=== PATIENT | female | born 1945 | race Caucasian/White ===

== ENCOUNTER → 2019-03-02 15:59 | Outpatient (CLI) | payer MEDICARE, MEDICAID, OTHER, SELFPAY ==
[2019-03-02 16:34] LABS: Basophils # 0.1 K/mm3 (0-0.2); Basophils % 0.6 % (0.1-2.0); Eosinophils # 0.1 K/mm3 (0.0-0.4); Eosinophils % 1.6 % (0.1-12.0); Hematocrit 40.4 % (37.0-47.0); Hemoglobin 13.2 g/dL (12.2-16.2); Lymphocytes # 2.8 K/mm3 (0.7-4.5); Lymphocytes % 31.6 % (10-50); Mean Corpuscular HGB Conc 32.6 g/dL (31.8-35.4); Mean Corpuscular Hemoglobin 29.7 pg (27.0-31.2); Mean Corpuscular Volume 91.1 fl (81-99); Mean Platelet Volume 6.9 fl (7.4-10.4); Monocytes # 0.6 K/mm3 (0.1-1.0); Monocytes % 6.9 % (1.7-9.3); Neutrophils # 5.3 K/mm3 (1.8-7.8); Neutrophils % 59.4 % (37.0-80.0); Platelet Count 383 K/mm3 (142-424); Red Blood Count 4.44 M/mm3 (4.20-5.40); Red Cell Distribution Width 12.5 % (11.5-17.5); White Blood Count 8.9 K/mm3 (4.8-10.8)
[2019-03-02 17:28] LABS: Hemoglobin A1C 6.1 % (0.0-7.0)
[2019-03-02 18:48] LABS: Alanine Aminotransferase 41 U/L (12-78); Albumin Level 3.8 gm/dL (3.4-5.0); Albumin/Globulin Ratio 1.1 (1.1-1.8); Alkaline Phosphatase 86 U/L (46-116); Anion Gap 11.6 mEq/L (5-15); Aspartate Amino Transferase 29 U/L (15-37); Bilirubin,Total 0.5 mg/dL (0.2-1.0); Blood Urea Nitrogen 19 mg/dL (7-18); Calcium 9.7 mg/dL (8.5-10.1); Carbon Dioxide 29 mmol/L (21.0-32.0); Chloride 101 mmol/L (98-107); Chol/HDL Ratio 3.5 (1-3.5); Cholesterol 176 mg/dL (140-200); Creatinine,Serum 0.57 mg/dL (0.55-1.02); Estimated Glomerular Filt Rate 104 ml/min (>60); GFR (African American) 126 ML/MIN (>60); Globulin 3.4 gm/dl (1.3-3.2); Glucose 90 mg/dL (74-106); HDL Cholesterol 50 mg/dL (29-89); LDL Cholesterol 109 mg/dL (0-130); Potassium 4.6 mmoL/L (3.5-5.1); Sodium 137 mmol/L (136-145); Thyroid Stimulating Hormone 1.51 uIU/ml (0.358-3.740); Total Protein,Serum 7.2 gm/dL (6.4-8.2); Triglycerides 86 mg/dL (30-200); VLDL Cholesterol 17 mg/dL (0-40)
[2019-03-05 09:42] LABS: Folate 18.1 ng/mL (>3.0); Vitamin B12 686 pg/mL (232-1245)
== END ==
PROVIDERS: Visit Provider Family Medicine
DX: R60.0 Localized edema (principal); R07.89 Other chest pain; I35.8 Other nonrheumatic aortic valve disorders; R13.10 Dysphagia, unspecified; Z79.899 Other long term (current) drug therapy
CPT/HCPCS: 36415; 80053; 80061; 82607; 82746; 83036; 84443; 85025

== ENCOUNTER → 2019-03-05 09:11 | Outpatient (CLI) | payer MEDICARE, OTHER, SELFPAY ==
--- NOTE | 2019-03-05 09:22 | FL_ITS ---
PROCEDURE: FL BARIUM SWALLOW CLINICAL INDICATION: ESOP;HAGEAL DYSPHAGIA COMPARISON: No exams were available for comparison TECHNIQUE: In the upright position the patient was observed to swallow barium in both the AP and lateral view. The cervical esophagus was examined under fluoroscopy with images obtained. The patient was then placed prone in the right anterior oblique position and was observed to swallow barium with Valsalva technique . FLUOROSCOPY TIME: 2 minutes 36 seconds FINDINGS: The swallowing function was normal. There is minimal intermittent cricopharyngeal dysfunction lower cervical soft tissues. 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 There were moderate tertiary contractions of the lower 2/3 of the esophagus. There is a small sliding hiatal hernia but there was no significant GE reflux seen with the patient in the supine position. IMPRESSION: The combination of mild cricopharyngeal dysfunction and multilevel degenerate changes of the cervical spine could be a cause for symptoms of dysphagia particularly the solid foods. There there are findings of mild to moderate esophageal dyskinesia as described Dictated by: Dr. Wilman Mullins MD 03/05/2019 10:28 Signed by: <Electronically signed by Dr. Wilman Mullins MD in [place]> 03/05/2019 10:28
== END ==
PROVIDERS: PCP Family Medicine; Visit Provider Family Medicine
DX: I35.8 Other nonrheumatic aortic valve disorders (principal); R13.10 Dysphagia, unspecified; R60.0 Localized edema; R07.89 Other chest pain
CPT/HCPCS: 74220; 93306

== ENCOUNTER → 2019-06-11 09:20 | Outpatient (CLI) | payer MEDICARE, OTHER, SELFPAY ==
--- NOTE | 2019-06-11 09:26 | CA_ITS ---
APPROVED REPORT Dietitian Helper: Verenice Ricci RVT Laterality: Bilateral Study Quality: Good Indications: Dizziness and Vertigo Risk Factors Hypertension: TIA/CVA History Hyperlipidemia Doppler Spectral Velocity Analysis ECA (R) 137.80/12.00 cm/s ECA (L) 127.20/14.20 cm/s dICA (R) 129.40/31.40 cm/s dICA (L) 79.30/18.00 cm/s Nina (R) 107.70/28.40 cm/s Nina (L) 59.10/15.70 cm/s pICA (R) 81.50/20.50 cm/s pICA (L) 83.10/21.70 cm/s dCCA (R) 70.00/14.80 cm/s dCCA (L) 59.90/10.50 cm/s pCCA (R) 95.70/14.80 cm/s pCCA (L) 76.30/12.00 cm/s Vert (R) 51.50/13.70 cm/s Vert (L) 59.10/15.70 cm/s ICA/CCA 1.85 ICA/CCA 1.39 Conclusion Study suggests normal bilateral internal cartoid arteries. No evidence of stenosis visualized. Electronically signed by : Mars Wilkins MD 06/16/2019 18:41:18
== END ==
PROVIDERS: PCP Family Medicine; Visit Provider Family Medicine
DX: R42 Dizziness and giddiness (principal)
CPT/HCPCS: 93880

== ENCOUNTER → 2020-11-17 09:43 | Outpatient (CLI) | payer MEDICARE, OTHER, SELFPAY ==
--- NOTE | 2020-11-17 09:49 | US_ITS ---
PROCEDURE: US THYROID CLINICAL INDICATION: ESOPHAGEAL DYSPHAGIA COMPARISON: No exams were available for comparison FINDINGS: Right lobe: 1.4cm x 3.7cm x 1.2cm. 9 x 5 mm slightly hypoechoic nodule in the upper pole. 2 mm cyst lower pole. There is mild diffuse heterogeneous echogenicity. Left lobe: 1.3cm x 3.8cm x 1.2cm. 6 mm slightly hypoechoic nodule pole. Subtle 3 mm hypoechoic nodule lower pole Isthmus: Thickened at 7 mm Additional findings: IMPRESSION: Small bilateral nodules TR level 3. Recommend twelve month follow-up. Dictated by: Mars Wilkins MD 11/18/2020 08:38 Mars Wilkins MD in [place] 11/18/2020 08:38
== END ==
PROVIDERS: PCP Family Medicine; Visit Provider Family Medicine
DX: R13.10 Dysphagia, unspecified (principal)
CPT/HCPCS: 76536

== ENCOUNTER 2021-04-06 15:16 | Emergency (ER) | payer MEDICARE, OTHER, SELFPAY ==
--- NOTE | 2021-04-06 15:24 | HMH.EDGENADL ---
ED Disposition Clinical Impression: Head injury, Facial contusion, Nasal fracture Disposition: Home, Self-Care Condition on Discharge: Good Additional Instructions: Follow head injury precautions. Continue home medications. Return to the emergency for any new symptoms. Call ENT for follow-up regarding nasal fracture. Take Tylenol as needed for pain. Return to the emergency room for any new symptoms. Referrals: Alvaro Reina MD [Primary Care Provider] - - Critical Care Critical Care Time: No Attestation: On 04/06/21, the high probability of a clinically significant, sudden or life threatening deterioration of the following system(s) required my full and direct attention, intervention and personal management. The time I documented below is in addition to time spent performing reported procedures but includes the following listed in this critical care notation. Medical Decision Making - Medical Records MR Comment: Patient has only 1 cm superficial laceration on the frontal area. Decided to use Dermabond. She was sent to the x-ray for CT scan of the brain and facial bones. There was no signs of concussions. No change in mental status. No focal neurological deficit. CT scan of the head was negative. CT of the facial bones shows nasal fracture she has to follow-up with ENT. Regarding her left knee she has chronic deformity for the past 16 years and it was addressed several times by the orthopedic and advised there is no surgery indicate. - Rajat Inquiry Pt receiving controlled substance: No Rajat was queried for this patient: No Vital Signs: 04/06/21 15:37 Temperature 98.3 F Temperature Source Oral Pulse Rate [Left] 109 H Respiratory Rate 16 Blood Pressure [Right Arm] 169/91 H Blood Pressure Mean [Right Arm] 117 Blood Pressure Source [Right Arm] Automatic Cuff Blood Pressure Position [Right Arm] Supine 02 Sat by Pulse Oximetry 96 Oxygen Delivery Method Room Air General Adult HPI - General Stated complaint: AO [id number] facial Time Seen by Provider: 04/06/21 15:22 Description of Symptoms (Recalled from ER Triage Doc. by RN): Patient is 76-year-old female who tripped and fell and caused soft tissue swelling on the frontal area of the face and around her right eye. She denies any loss of consciousness. No nausea or vomiting. No change in mental status. She denies any headache. She denies any chest pain. She denies any shortness of breath. She walked to the emergency room. Patient has chronic problem involving her left knee and her gait is not stable for the past 16 years due to deformity of the left knee. No other injuries. Denies any other complaints. There was 1 cm superficial laceration on the frontal area which involved the skin only. - Related Data Home Medications Medication Instructions Recorded Confirmed aspirin 81 mg tablet,delayed 81 mg PO DAILY 08/13/19 09/14/19 release diphenhydramine HCl 25 mg capsule 25 mg PO QHS 08/13/19 09/14/19 meclizine 12.5 mg tablet 12.5 mg PO BID 08/13/19 09/14/19 multivit with min-folic 1 tab PO DAILY 08/13/19 09/14/19 acid-lutein 400 mcg-250 mcg chewable tablet omeprazole 40 mg capsule,delayed 40 mg PO DAILY 08/13/19 09/14/19 release triamterene 37.5 1 cap PO BID 08/13/19 09/14/19 mg-hydrochlorothiazide 25 mg capsule Previous Rx's Medication Instructions Recorded sodium,potassium,mag sulfates 17.5 See Rx Instructions PO .COMPLEX 09/14/19 gram-3.13 gram-1.6 gram oral soln #354 ml Allergies Allergy/AdvReac Type Severity Reaction Status Date / Time Penicillins Allergy Verified 09/14/19 11:28 [facility] History - Hepatitis A Screen Attestation statement:: This patient has been screened for Hepatitis A risk factors. Medical History: Reports:: Gastroesophageal Reflux Disease(GERD), Hypertension Denies:: Cancer, Diabetes Mellitus Type 1, Diabetes Mellitus Type 2, Internal Pacemaker, MRSA, Seizures Oth
[2021-04-06 15:37] VITALS: BP 169/91; PULSE 109; RESP 16; TEMP 36.8; O2SAT 96; BMI 36.7
--- NOTE | 2021-04-06 15:49 | CT_ITS ---
PROCEDURE INFORMATION: Exam: CT Head Without Contrast Exam date and time: 04/06/2021 3:49 PM Age: 76 years old Clinical indication: Injury or trauma; Fall; Concussion/head injury; Consciousness not specified TECHNIQUE: Imaging protocol: Computed tomography of the head without contrast. Radiation optimization: All CT scans at this facility use at least one of these dose optimization techniques: automated exposure control; mA and/or kV adjustment per patient size (includes targeted exams where dose is matched to clinical indication); or iterative reconstruction. COMPARISON: US THYROID 11/17/2020 10:06 AM FINDINGS: Limitations: Images are degraded by beam hardening and motion artifact. Brain: There is no evidence of intracranial hemorrhage or evidence of acute territorial infarct. Farrar-white differentiation is maintained. No mass effect. Cerebral ventricles: No ventriculomegaly. Paranasal sinuses: Visualized sinuses are unremarkable. No fluid levels. Mastoid air cells: Visualized mastoid air cells are well aerated. Orbital cavity: Bilateral aphakia. Bones/joints: Unremarkable. No acute fracture. Soft tissues: Unremarkable. IMPRESSION: No evidence of acute intracranial abnormality on this motion degraded exam.
--- NOTE | 2021-04-06 15:49 | CT_ITS ---
PROCEDURE INFORMATION: Exam: CT Maxillofacial Without Contrast Exam date and time: 04/06/2021 3:49 PM Age: 76 years old Clinical indication: Injury or trauma; Fall; Blunt trauma (contusions or hematomas); Forehead and nose; Additional info: Fall with trauma to forehead and nose TECHNIQUE: Imaging protocol: Computed tomography images of the face without contrast. Radiation optimization: All CT scans at this facility use at least one of these dose optimization techniques: automated exposure control; mA and/or kV adjustment per patient size (includes targeted exams where dose is matched to clinical indication); or iterative reconstruction. COMPARISON: CT HEAD/BRAIN WO CON 04/06/2021 4:03 PM FINDINGS: Orbital cavity: Orbits are normal. Globes are unremarkable. Bones/joints: There is a left nasal bone fracture. Paranasal sinuses: Normal. No air-fluid levels. Soft tissues: There is frontal soft tissue swelling with foci of subcutaneous emphysema. IMPRESSION: Left nasal bone fracture.
--- NOTE | 2021-04-06 15:49 | XR_ITS ---
PROCEDURE INFORMATION: Exam: XR Right Knee Exam date and time: 04/06/2021 3:49 PM Age: 76 years old Clinical indication: Injury or trauma; Blunt trauma; Right; Patient HX: Fall with RT knee pain TECHNIQUE: Imaging protocol: XR Right knee. Views: 1 or 2 views. COMPARISON: No relevant prior studies available. FINDINGS: Bones/joints: No acute fracture or dislocation. Please note that positioning on the lateral view is suboptimal. There are tricompartmental degenerative changes with joint space narrowing and marginal osteophytes. Note is made of a patchy sclerotic lesion within the distal femur. No knee joint effusion. Soft tissues: There is soft tissue swelling anterior to the patellar tendon. IMPRESSION: 1. No acute fracture. 2. Patchy sclerotic lesion within the distal femur could represent an enchondroma or bone infarct however a metastasis cannot be excluded if this patient has a history of malignancy. 3. Soft tissue swelling anterior to the patellar tendon. Tendinous or ligamentous injury cannot be excluded.
--- NOTE | 2021-04-06 16:00 | PC.NURSE ---
pt going for CT
--- NOTE | 2021-04-06 16:27 | PC.NURSE ---
pt back from radiology
[2021-04-06 17:42] VITALS: BP 169/91; PULSE 109; RESP 18; TEMP 36.8; O2SAT 99
== END 2021-04-06 17:43 | disposition home or self-care (01) ==
PROVIDERS: Emergency Provider Internal Medicine; PCP Family Medicine
DX: S01.81XA Laceration without foreign body of other part of head, initial encounter (principal); S02.2XXA Fracture of nasal bones, initial encounter for closed fracture; W01.0XXA Fall on same level from slipping, tripping and stumbling without subsequent striking against object, initial encounter; Y92.019 Unspecified place in single-family (private) house as the place of occurrence of the external cause; K21.9 Gastro-esophageal reflux disease without esophagitis; I10 Essential (primary) hypertension; Z88.0 Allergy status to penicillin
CPT/HCPCS: 12011; 70450; 70486; 73560; 99282

== ENCOUNTER 2021-06-28 11:38 | Emergency (ER) | payer MEDICARE, OTHER, SELFPAY ==
[2021-06-28 11:39] VITALS: BP 158/73; PULSE 94; RESP 16; TEMP 36.7; O2SAT 95; BMI 36.8
--- NOTE | 2021-06-28 11:51 | ECG_ITS ---
APPROVED REPORT Exam: Resting ECG HR:84 bpm ECG Measurements Heart Rate 84 AXES CA 142 P 35 QRSd 94 QRS -10 QT 372 T 51 QTc 439 Conclusion Normal sinus rhythm Cannot rule out Anterior infarct, age undetermined Abnormal ECG Electronically signed by : Sina Casas MD 06/30/2021 06:22:36
[2021-06-28 12:00] VITALS: BP 149/76; PULSE 91; RESP 14; O2SAT 95
--- NOTE | 2021-06-28 12:08 | HMH.EDGENADL ---
ED Disposition Clinical Impression: Multiple falls Scalp contusion Qualifiers: Encounter type: initial encounter Qualified Code(s): S00.03XA - Contusion of scalp, initial encounter Lumbar strain Qualifiers: Encounter type: initial encounter Qualified Code(s): S39.012A - Strain of muscle, fascia and tendon of lower back, initial encounter Disposition: Home, Self-Care Condition on Discharge: Good Instructions: How to Prevent Falls Additional Instructions: Tylenol as needed for pain. Use your walker for assistance with ambulation. Follow-up with your primary care provider, call for appointment. Referrals: Alvaro Reina MD [Primary Care Provider] - - Critical Care Critical Care Time: No Attestation: On 06/28/21, the high probability of a clinically significant, sudden or life threatening deterioration of the following system(s) required my full and direct attention, intervention and personal management. The time I documented below is in addition to time spent performing reported procedures but includes the following listed in this critical care notation. Medical Decision Making - Rajat Inquiry Pt receiving controlled substance: No Vital Signs: 06/28/21 11:39 06/28/21 12:00 06/28/21 12:18 Temperature 98.1 F Temperature Source Oral Pulse Rate 91 H 92 H Pulse Rate [Right] 94 H Respiratory Rate 16 14 15 Blood Pressure 149/76 H 151/78 H Blood Pressure [Right Arm] 158/73 H Blood Pressure Mean 89 99 Blood Pressure Mean [Right Arm] 101 Blood Pressure Source [Right Arm] Automatic Cuff Blood Pressure Position [Right Arm] Sitting 02 Sat by Pulse Oximetry 95 95 95 Oxygen Delivery Method Room Air - Lab Data Lab Results 06/28/21 12:00: WBC 10.3, RBC 3.99 L, Hgb 12.5, Hct 36.3 L, MCV 91.1, MCH 31.2, MCHC 34.3, RDW 13.2, Plt Count 364, MPV 8.3, Neut % (Auto) 79.7, Lymph % (Auto) 12.6, [place] % (Auto) 4.4, Eos % (Auto) 1.7, Baso % (Auto) 1.5, Neut # (Auto) 8.2 H, Lymph # (Auto) 1.3, [place] # (Auto) 0.5, Eos # (Auto) 0.2, Baso # (Auto) 0.2 06/28/21 12:00: Sodium 138, Potassium 4.0, Chloride 103, Carbon Dioxide 26, Anion Gap 13.0, BUN 18 H, Creatinine 0.90, Estimated Creat Clear 74, Estimated GFR 61, Est GFR ( Amer) 74, Glucose 239 H, Calcium 9.6, Total Bilirubin 0.3, AST 46 H, ALT 32, Alkaline Phosphatase 61, Troponin I < 0.01, Total Protein 7.2, Albumin 4.2, Globulin 3.0, Albumin/Globulin Ratio 1.4 Result diagrams: 06/28/21 12:00 06/28/21 12:00 Orders (Tests/Meds): ORDERS Category Date Time Status Troponin I Q3H Lab 06/28/21 15:15 Ordered Troponin I Q3H Lab 06/28/21 18:15 Ordered - Radiology Data #1 Image(s): Pelvis Image Reviewed: Yes I have reviewed radiologist's interpretation PROCEDURE: XR PELVIS 1-2V CLINICAL INDICATION: fall COMPARISON: No exams were available for comparison TECHNIQUE: XR Pelvis AP View FINDINGS: No fracture or dislocation is evident. No significant degenerative change. No lytic or blastic change. IMPRESSION: No acute findings. Dictated by: Mars Wilkins MD 06/28/2021 12:35 Mars Wilkins MD in [facility] 06/28/2021 12:35 - CT Data CT Scan: Head, C-Spine, L-Spine Time Received: 13:[address] Reviewed: Yes: I have viewed the radiologist's interpretation Findings Narrative: PROCEDURE INFORMATION: Exam: CT Cervical Spine Without Contrast Exam date and time: 06/28/2021 12:12 PM Age: 76 years old Clinical indication: Injury or trauma; Fall; Blunt trauma; Additional info: Fall with dizziness TECHNIQUE: Imaging protocol: Computed tomography images of the cervical spine without contrast. Radiation optimization: All CT scans at this facility use at least one of these dose optimization techniques: automated exposure control; mA and/or kV adjustment per patient size (includes targeted exams where dose is matched to clinical indication); or iterative reconstruction. COMPARISON: None availab
--- NOTE | 2021-06-28 12:12 | CT_ITS ---
PROCEDURE INFORMATION: Exam: CT Cervical Spine Without Contrast Exam date and time: 06/28/2021 12:12 PM Age: 76 years old Clinical indication: Injury or trauma; Fall; Blunt trauma; Additional info: Fall with dizziness TECHNIQUE: Imaging protocol: Computed tomography images of the cervical spine without contrast. Radiation optimization: All CT scans at this facility use at least one of these dose optimization techniques: automated exposure control; mA and/or kV adjustment per patient size (includes targeted exams where dose is matched to clinical indication); or iterative reconstruction. COMPARISON: None available. FINDINGS: Bones/joints: No acute fracture. Normal alignment. Discs/Spinal canal/Neural foramina: There is multilevel degenerative disc disease and spondylosis.. Lungs: Lung apices are normal. Soft tissues: Unremarkable. IMPRESSION: No acute fracture.
--- NOTE | 2021-06-28 12:12 | CT_ITS ---
PROCEDURE INFORMATION: Exam: CT Head Without Contrast Exam date and time: 06/28/2021 12:12 PM Age: 76 years old Clinical indication: Injury or trauma; Fall; Blunt trauma (contusions or hematomas); Additional info: Fall with dizziness, hit back of head TECHNIQUE: Imaging protocol: Computed tomography of the head without contrast. Radiation optimization: All CT scans at this facility use at least one of these dose optimization techniques: automated exposure control; mA and/or kV adjustment per patient size (includes targeted exams where dose is matched to clinical indication); or iterative reconstruction. COMPARISON: CT HEAD/BRAIN WO CON 04/06/2021 4:03 PM FINDINGS: Brain: Prominent sulci. Patchy hypodensity of the cerebral white matter which are nonspecific but likely secondary to microangiopathic changes. Cerebral ventricles: The ventricles are prominent secondary to diffuse volume loss/atrophy. Paranasal sinuses: Visualized sinuses are unremarkable. No fluid levels. Mastoid air cells: Visualized mastoid air cells are well aerated. Bones/joints: Unremarkable. No acute fracture. Soft tissues: Unremarkable. IMPRESSION: Chronic age related changes but no evidence of acute intracranial pathology.
--- NOTE | 2021-06-28 12:12 | XR_ITS ---
PROCEDURE: XR PELVIS 1-2V CLINICAL INDICATION: fall COMPARISON: No exams were available for comparison TECHNIQUE: XR Pelvis AP View FINDINGS: No fracture or dislocation is evident. No significant degenerative change. No lytic or blastic change. IMPRESSION: No acute findings. Dictated by: Mars Wilkins MD 06/28/2021 12:35 Mars Wilkins MD in [facility] 06/28/2021 12:35
--- NOTE | 2021-06-28 12:12 | PC.NURSE ---
pt ambulated up to bathroom
[2021-06-28 12:18] VITALS: BP 151/78; PULSE 92; RESP 15; O2SAT 95
[2021-06-28 12:24] LABS: Chloride 103 mmol/L (98-107); Sodium 138 mmol/L (136-145)
[2021-06-28 12:27] LABS: Alanine Aminotransferase 32 U/L (12-78); Albumin Level 4.2 g/dl (3.5-5.0); Albumin/Globulin Ratio 1.4 (1.1-1.8); Alkaline Phosphatase 61 U/L (38-126); Aspartate Amino Transferase 46 U/L (14-36); Bilirubin,Total 0.3 mg/dl (0.2-1.3); Blood Urea Nitrogen 18 mg/dl (7-17); Carbon Dioxide 26 mmol/L (22.0-30.0); Creatinine Clearance Estimated 74 mL/min (50-200); Estimated Glomerular Filt Rate 61 ml/min (>60); GFR (African American) 74 ML/MIN (>60); Total Protein,Serum 7.2 g/dl (6.3-8.2)
[2021-06-28 12:28] LABS: Calcium 9.6 mg/dl (8.4-10.2); Glucose 239 mg/dl (74-100)
--- NOTE | 2021-06-28 12:32 | CT_ITS ---
PROCEDURE INFORMATION: Exam: CT Lumbar Spine Without Contrast Exam date and time: 06/28/2021 12:32 PM Age: 76 years old Clinical indication: Injury or trauma; Fall; Blunt trauma (contusions or hematomas); Additional info: Fall, C/O left sided pain TECHNIQUE: Imaging protocol: Computed tomography images of the lumbar spine without contrast. Radiation optimization: All CT scans at this facility use at least one of these dose optimization techniques: automated exposure control; mA and/or kV adjustment per patient size (includes targeted exams where dose is matched to clinical indication); or iterative reconstruction. COMPARISON: CR XR PELVIS 1-2V 06/28/2021 12:30 PM FINDINGS: Vertebrae: There is a limbus vertebrae at L4. Normal vertebral body heights are otherwise preserved. There is no listhesis. Discs/Spinal canal/Neural foramina: There is multilevel degenerative disc disease and spondylosis. At L4/5, there is disc bulging and mild facet hypertrophy. There is moderate right and mild left neural foraminal narrowing. At L5/S1, disc osteophyte complex and facet hypertrophy contribute to mild right and moderate left neural foraminal narrowing. Stomach and bowel: There is distal colonic diverticulosis. Soft tissues: Unremarkable. IMPRESSION: No acute fracture.
--- NOTE | 2021-06-28 12:32 | PC.NURSE ---
pt going to ct
[2021-06-28 12:35] LABS: Basophils # 0.2 K/mm3 (0-0.2); Basophils % 1.5 % (0.1-2.0); Eosinophils # 0.2 K/mm3 (0.0-0.4); Eosinophils % 1.7 % (0.1-12.0); Hematocrit 36.3 % (37.0-47.0); Hemoglobin 12.5 g/dL (12.2-16.2); Lymphocytes # 1.3 K/mm3 (0.7-4.5); Lymphocytes % 12.6 % (10-50); Mean Corpuscular HGB Conc 34.3 g/dL (31.8-35.4); Mean Corpuscular Hemoglobin 31.2 pg (27.0-31.2); Mean Corpuscular Volume 91.1 fl (81-99); Mean Platelet Volume 8.3 fl (7.4-10.4); Monocytes # 0.5 K/mm3 (0.1-1.0); Monocytes % 4.4 % (1.7-9.3); Neutrophils # 8.2 K/mm3 (1.8-7.8); Neutrophils % 79.7 % (37.0-80.0); Platelet Count 364 K/mm3 (142-424); Red Blood Count 3.99 M/mm3 (4.20-5.40); Red Cell Distribution Width 13.2 % (11.5-17.5); White Blood Count 10.3 K/mm3 (4.8-10.8)
[2021-06-28 13:01] LABS: Troponin I < 0.01 ng/ml (0.00-0.034)
[2021-06-28 13:55] VITALS: BP 173/81; PULSE 81; RESP 16; TEMP 36.8; O2SAT 96
== END 2021-06-28 13:56 | disposition home or self-care (01) ==
PROVIDERS: Emergency Provider Emergency Medicine; PCP Family Medicine
DX: S39.012A Strain of muscle, fascia and tendon of lower back, initial encounter (principal); S00.03XA Contusion of scalp, initial encounter; W01.0XXA Fall on same level from slipping, tripping and stumbling without subsequent striking against object, initial encounter; Y92.019 Unspecified place in single-family (private) house as the place of occurrence of the external cause; I10 Essential (primary) hypertension; K21.9 Gastro-esophageal reflux disease without esophagitis
CPT/HCPCS: 70450; 72125; 72131; 72170; 80053; 84484; 85025; 93005; 99283

== ENCOUNTER → 2021-07-17 14:52 | Outpatient (CLI) | payer MEDICARE, OTHER, SELFPAY | PROVIDERS: PCP Family Medicine; Visit Provider Family Medicine | DX: R55 Syncope and collapse (principal) | CPT/HCPCS: 93225; 93226 ==

== ENCOUNTER 2022-01-30 17:41 | Emergency (ER) | payer MEDICARE, OTHER, SELFPAY ==
[2022-01-30 18:35] VITALS: BP 167/78; PULSE 87; RESP 18; TEMP 36.9; O2SAT 98; BMI 38.9
[2022-01-30 18:42] VITALS: BMI 38.9
--- NOTE | 2022-01-30 19:00 | PC.NURSE ---
MD AT BEDSIDE FOR EVALUATION
--- NOTE | 2022-01-30 19:01 | CT_ITS ---
PROCEDURE INFORMATION: Exam: CT Cervical Spine Without Contrast Exam date and time: 01/30/2022 7:05 PM Age: 76 years old Clinical indication: Neck pain TECHNIQUE: Imaging protocol: Computed tomography of the cervical spine without contrast. Radiation optimization: All CT scans at this facility use at least one of these dose optimization techniques: automated exposure control; mA and/or kV adjustment per patient size (includes targeted exams where dose is matched to clinical indication); or iterative reconstruction. COMPARISON: CT CERVICAL SPINE WO CON 06/28/2021 12:34 PM FINDINGS: Bones/joints: No acute fracture. No high-grade listhesis. Minimal anterior subluxation C2-C3 of 1-2 mm can be physiologic or degenerative. There is mild bilateral facet arthropathy at this level. Chronic degenerative osteoarthrosis anteriorly C1-C2 with periarticular spurs, synovial thickening and soft tissue calcifications.There are no lytic skeletal lesions seen. Straightening of cervical lordosis suggests muscle spasm. Discs/Spinal canal/Neural foramina: Prominent degenerative disc disease with spondylosis C4-C5 through C6-C7 levels. At C4-C5 posterior disc-osteophyte complex indents the thecal sac and mildly narrows the central spinal canal. The left C5 foramen is moderately narrowed by lateral uncovertebral spurs, correlate for radiculopathy. At C5-C6, posterior disc-osteophyte complex indents the thecal sac and mildly narrows the central spinal canal. Right lateral uncovertebral spurs moderately stenose the right C6 foramen, with possible nerve impingement. Mild narrowing of the left C6 foramen. At C6-C7, the central spinal canal remains ample, and neural foramina are minimally narrowed. No high-grade stenoses. Prevertebral and retropharyngeal spaces: No prevertebral swelling.There are no soft tissue masses or fluid collections. Lungs: No acute findings in the visualized lung apices. Vasculature: Incidentally noted is a bovine branching configuration of the aortic arch, and atherosclerotic calcifications in the mediastinum. Soft tissues: No acute findings. IMPRESSION: 1. No acute fracture or lytic tumor. 2. Cervical muscle spasm. 3. Multilevel degenerative disc disease, spondylosis, and mild facet arthropathy as detailed above. 4. Mild central spinal stenosis at C4-C5 and C5-C6 levels. 5. Moderate degenerative foraminal stenoses at the left C5 foramen and right C6 foramen, correlate for radiculopathy. 6. Additional nonemergency and chronic findings as above.
--- NOTE | 2022-01-30 19:13 | PC.NURSE ---
[address] AT THIS TIME PER WC
--- NOTE | 2022-01-30 19:15 | HMH.EDGENADL ---
ED Disposition Clinical Impression: Cervical paraspinal muscle spasm Disposition: Home, Self-Care Condition on Discharge: Good Instructions: DI for Torticollis Prescriptions: methocarbamoL [Methocarbamol] 750 mg PO QID 7 Days #28 tab Transmission Status: Pending to [facility] Referrals: Alvaro Reina MD [Primary Care Provider] - - Critical Care Critical Care Time: No Attestation: On 01/30/22, the high probability of a clinically significant, sudden or life threatening deterioration of the following system(s) required my full and direct attention, intervention and personal management. The time I documented below is in addition to time spent performing reported procedures but includes the following listed in this critical care notation. Medical Decision Making - Medical Records Medical records reviewed: Yes: I reviewed the patient's medical records. - Rajat Inquiry Pt receiving controlled substance: No Vital Signs: 01/30/22 18:35 Temperature 98.4 F Temperature Source Oral Pulse Rate [Brachial] 87 Respiratory Rate 18 Blood Pressure [Right Arm] 167/78 H Blood Pressure Mean [Right Arm] 107 Blood Pressure Source [Right Arm] Automatic Cuff Blood Pressure Position [Right Arm] Sitting 02 Sat by Pulse Oximetry 98 Oxygen Delivery Method Room Air Orders (Tests/Meds): ED MEDICATIONS Generic Name Dose Route Start Last Admin Trade Name Freq PRN Reason Stop Dose Admin Methocarbamol 1,000 mg 01/30/22 21:00 01/30/22 19:10 Methocarbamol 500mg Tablet PO 03/01/22 20:59 1,000 mg BID RAMIREZ Administration Discontinued Medications Generic Name Dose Route Start Last Admin Trade Name Freq PRN Reason Stop Dose Admin Hydrocodone Bitart/Acetaminophen 1 tab 01/30/22 19:01 01/30/22 19:10 Hydrocodone/Apap 5/325 Mg Tablet PO 01/30/22 19:02 1 tab ONCE ONE Administration - CT Data CT Scan: C-Spine Time Received: 19:[address] Reviewed: Yes: I have reviewed the patient's CT results, I have viewed the radiologist's interpretation Findings Narrative: IMPRESSION: 1. No acute fracture or lytic tumor. 2. Cervical muscle spasm. 3. Multilevel degenerative disc disease, spondylosis, and mild facet arthropathy as detailed above. 4. Mild central spinal stenosis at C4-C5 and C5-C6 levels. 5. Moderate degenerative foraminal stenoses at the left C5 foramen and right C6 foramen, correlate for radiculopathy. 6. Additional nonemergency and chronic findings as above. - Reevaluation(s) Time: 19:59 Reevaluation #1: On reevaluation, patient is feeling better. CT shows some cervical spasm. Patient be placed on a short course of muscle relaxers. Needs to follow-up with PCP in 48 hours. Given strict return precautions. Verbalized understanding. Medical Decision Narrative: 76-year-old female presented to the emergency department with some neck pain. Appears to be chronic in nature. Symptoms more consistent with a spasm. Imaging obtained. General Adult HPI - General Chief complaint: PAIN Stated complaint: neck pain Time Seen by Provider: 01/30/22 18:40 Mode of Arrival: Ambulatory Limitations: No Limitations Description of Symptoms (Recalled from ER Triage Doc. by RN): PT REPORTS BILATERAL STABBING/STINGING NECK PAIN FOR SEVERAL DAYS - History of Present Illness HPI narrative: This is 76-year-old female presenting with some neck pain. Patient states that she has had the symptoms for the last 2 years or so. They have worsened over the last week. He is having bilateral neck pain that feels more like a spasm on each side. Radiates up to the back of her neck. She denies any direct trauma. Is worse when she tries to turn her head from side to side. She is not having any headache or change in vision. No focal weakness. No chest pain or shortness of breath. No abdominal pain or vomiting. No diarrhea. - Related Data Home Medications Medication Instructions Recor
--- NOTE | 2022-01-30 19:15 | PC.NURSE ---
PT RETURNED FROM CT
[2022-01-30 20:40] VITALS: BP 146/78; PULSE 81; RESP 18; TEMP 36.9; O2SAT 98
== END 2022-01-30 20:41 | disposition home or self-care (01) ==
PROVIDERS: Emergency Provider Emergency Medicine; PCP Family Medicine
DX: M62.838 Other muscle spasm (principal); Z88.0 Allergy status to penicillin; I10 Essential (primary) hypertension; K21.9 Gastro-esophageal reflux disease without esophagitis
CPT/HCPCS: 72125; 99284

== ENCOUNTER → 2022-04-26 11:55 | Outpatient (CLI) | payer MEDICARE, OTHER, SELFPAY ==
[2022-04-26 18:44] LABS: Basophils # 0.1 K/mm3 (0-0.2); Eosinophils # 0.2 K/mm3 (0.0-0.4); Eosinophils % 2.1 % (0.1-12.0); Hematocrit 39.5 % (37.0-47.0); Hemoglobin 12.7 g/dL (12.2-16.2); Lymphocytes # 2.1 K/mm3 (0.7-4.5); Lymphocytes % 24.7 % (10-50); Mean Corpuscular HGB Conc 32.2 g/dL (31.8-35.4); Mean Corpuscular Hemoglobin 30.3 pg (27.0-31.2); Mean Corpuscular Volume 94.2 fl (81-99); Monocytes # 0.5 K/mm3 (0.1-1.0); Monocytes % 5.7 % (1.7-9.3); Neutrophils # 5.8 K/mm3 (1.8-7.8); Neutrophils % 66.6 % (37.0-80.0); Platelet Count 400 K/mm3 (142-424); Red Blood Count 4.19 M/mm3 (4.20-5.40); Red Cell Distribution Width 13.3 % (11.5-17.5); White Blood Count 8.7 K/mm3 (4.8-10.8)
[2022-04-26 18:58] LABS: Alanine Aminotransferase 41 U/L (12-78); Albumin/Globulin Ratio 1.3 (1.1-1.8); Alkaline Phosphatase 85 U/L (38-126); Anion Gap 17.3 mEq/L (5-15); Aspartate Amino Transferase 62 U/L (14-36); Bilirubin,Total 0.6 mg/dl (0.2-1.3); Blood Urea Nitrogen 22 mg/dl (7-17); Calcium 9.4 mg/dl (8.4-10.2); Carbon Dioxide 27 mmol/L (22.0-30.0); Chloride 96 mmol/L (98-107); Chol/HDL Ratio 5.2 (1-3.5); Cholesterol 176 mg/dl (140-200); Estimated Glomerular Filt Rate 61 ml/min (>60); GFR (African American) 73 ML/MIN (>60); Glucose 139 mg/dl (74-100); HDL Cholesterol 34 mg/dl (40-60); Potassium 4.3 mmoL/L (3.5-5.1); Sodium 136 mmol/L (136-145); Triglycerides 238 mg/dl (30-150); VLDL Cholesterol 48 mg/dL (0-40)
[2022-04-26 19:38] LABS: 25-OH Vitamin D, Total 19.4 ng/mL (30-100)
== END ==
PROVIDERS: PCP Family Medicine; Visit Provider Family Medicine
DX: I10 Essential (primary) hypertension (principal); R55 Syncope and collapse; E55.9 Vitamin D deficiency, unspecified
CPT/HCPCS: 80053; 80061; 82306; 84443; 85025

== ENCOUNTER → 2022-07-26 11:00 | Outpatient (CLI) | payer MEDICARE, OTHER, SELFPAY ==
[2022-07-26 18:31] LABS: Basophils # 0.1 K/mm3 (0-0.2); Basophils % 1.2 % (0.1-2.0); Eosinophils # 0.2 K/mm3 (0.0-0.4); Eosinophils % 1.9 % (0.1-12.0); Hematocrit 40.4 % (37.0-47.0); Hemoglobin 13.4 g/dL (12.2-16.2); Lymphocytes # 2.3 K/mm3 (0.7-4.5); Lymphocytes % 22.7 % (10-50); Mean Corpuscular HGB Conc 33.2 g/dL (31.8-35.4); Mean Corpuscular Hemoglobin 30.7 pg (27.0-31.2); Mean Corpuscular Volume 92.6 fl (81-99); Mean Platelet Volume 8.5 fl (7.4-10.4); Monocytes # 0.4 K/mm3 (0.1-1.0); Monocytes % 4.3 % (1.7-9.3); Neutrophils % 69.9 % (37.0-80.0); Platelet Count 452 K/mm3 (142-424); Red Blood Count 4.36 M/mm3 (4.20-5.40); Red Cell Distribution Width 13.4 % (11.5-17.5)
[2022-07-26 18:39] LABS: Alanine Aminotransferase 33 U/L (12-78); Albumin Level 4.6 g/dl (3.5-5.0); Albumin/Globulin Ratio 1.4 (1.1-1.8); Alkaline Phosphatase 78 U/L (38-126); Anion Gap 14.8 mEq/L (5-15); Aspartate Amino Transferase 46 U/L (14-36); Bilirubin,Total 0.7 mg/dl (0.2-1.3); Blood Urea Nitrogen 23 mg/dl (7-17); Calcium 9.5 mg/dl (8.4-10.2); Carbon Dioxide 27 mmol/L (22.0-30.0); Chloride 100 mmol/L (98-107); Cholesterol 191 mg/dl (140-200); Estimated Glomerular Filt Rate 54 ml/min (>60); GFR (African American) 65 ML/MIN (>60); Globulin 3.3 g/dL (1.3-3.2); Glucose 131 mg/dl (74-100); HDL Cholesterol 38 mg/dl (40-60); Potassium 3.8 mmoL/L (3.5-5.1); Sodium 138 mmol/L (136-145); Total Protein,Serum 7.9 g/dl (6.3-8.2); Triglycerides 232 mg/dl (30-150); VLDL Cholesterol 46 mg/dL (0-40)
[2022-07-26 18:50] LABS: Direct LDL Cholesterol 113.58 mg/dL (100-129)
[2022-07-26 19:09] LABS: Thyroid Stimulating Hormone 1.99 uIU/mL (0.465-4.68)
[2022-07-26 19:28] LABS: Vitamin B12 819 pg/mL (239-931)
== END ==
PROVIDERS: PCP Family Medicine; Visit Provider Family Medicine
DX: E11.9 Type 2 diabetes mellitus without complications (principal); K21.9 Gastro-esophageal reflux disease without esophagitis; Z79.899 Other long term (current) drug therapy
CPT/HCPCS: 80053; 80061; 82607; 84443; 85025

== ENCOUNTER 2022-08-30 17:28 | Emergency (ER) | payer MEDICARE, OTHER, SELFPAY ==
--- NOTE | 2022-08-30 18:07 | XR_ITS ---
PROCEDURE INFORMATION: Exam: XR Left Foot Exam date and time: 08/30/2022 6:15 PM Age: 77 years old Clinical indication: Injury or trauma; Fall; Sprain or strain; Foot; Left; Injury date: 08/27/22 TECHNIQUE: Imaging protocol: Radiologic exam of the Left foot. Views: 3 or more views. COMPARISON: CR Ankle L 08/30/2022 6:13 PM FINDINGS: Bones/joints: No acute-appearing fracture or dislocation in the foot. Bones appear mildly demineralized. Subcortical cystic changes in the talar dome are more clearly seen on the patient's ankle series. Soft tissues: Soft tissue swelling in the foot and ankle. Atherosclerotic calcified plaques noted in the forefoot.No radiopaque foreign bodies seen. IMPRESSION: 1. No acute-appearing fracture or dislocation in the left foot. No findings of osteomyelitis. 2. Osteopenia. 3. Atherosclerotic calcifications in the foot. 4. Soft tissue swelling.
--- NOTE | 2022-08-30 18:07 | XR_ITS ---
PROCEDURE INFORMATION: Exam: XR Left Ankle Exam date and time: 08/30/2022 6:13 PM Age: 77 years old Clinical indication: Injury or trauma; Fall; Sprain or strain; Ankle; Left; Injury date: 08/27/22 TECHNIQUE: Imaging protocol: Radiologic exam of the Left ankle. Views: 3 or more views. COMPARISON: No relevant prior studies available. FINDINGS: Bones/joints: No acute fracture or dislocation. Slight talar tilt and widening of the lateral ankle mortise on oblique series 2, raising the possibility of lateral ligament sprain injury. Prominent chronic appearing subcortical cystic change in the medial talar dome, with 11 mm ovoid subcortical radiolucent lesion with a thin sclerotic rim. No detached osteochondral lesions are seen. Possible os trigonum at the posterior ankle, suboptimally imaged on the lateral view due to plantar-flexed positioning, slight rotation and superimposed bone shadows. Soft tissues: Prominent periarticular soft tissue swelling at the ankle, as well as edema in the distal calf and extending into the foot. No radiopaque foreign bodies seen. Question 9 mm linear calcification in the plantar aspect of the foot, projected proximal to the 5th metatarsal base on oblique series 3, but not well seen on the other views, possibly artifact rather than true calcification. If the patient has pain in this region this could be more accurately evaluated with foot series. IMPRESSION: 1. No acute fracture or dislocation at the left ankle. 2. Findings suspicious for lateral ligament sprain injury. 3. An 11 mm chronic appearing subcortical cyst at the medial talar dome. No displaced osteochondral fragments seen. 4. Soft tissue swelling. 5. Additional nonemergency and chronic findings as above.
[2022-08-30 18:10] VITALS: BP 148/91; PULSE 86; RESP 22; TEMP 36.8; O2SAT 96; BMI 37.5; BMI 37.8
--- NOTE | 2022-08-30 18:30 | EXP.UTC ---
Discharge Plan Disposition Patient Disposition: Home, Self-Care Condition: Good Prescriptions Prescriptions: No Action Centrum Silver 400-250 mcg tablet,chewable 1 tab PO DAILY aspirin [Aspir-81] 81 mg tablet,delayed release (DR/EC) 81 mg PO DAILY pravastatin 10 mg tablet 10 mg PO DAILY Qty: 90 1RF triamterene-hydrochlorothiazid 37.5-25 mg capsule 1 cap PO BID Qty: 90 1RF methocarbamol 750 mg tablet 750 mg PO QID gabapentin 300 mg capsule 300 mg PO HS Qty: 30 3RF diphenoxylate-atropine 2.5-0.025 mg tablet 1 tab PO QID PRN (Reason: diarrhea) Qty: 90 0RF sodium,potassium,mag sulfates 17.5-3.13-1.6 gram recon soln See Rx Instructions PO .COMPLEX Qty: 354 0RF Rx Instructions: DILUTE; drink full amount 5:00 evening before AND next morning at least 4 hr before procedure omeprazole 40 mg capsule,delayed release(DR/EC) 40 mg PO DAILY Qty: 90 1RF meclizine 12.5 mg tablet 12.5 mg PO BID Qty: 60 1RF Rx Instructions: TAKE 1 TABLEY BY MOUTH TWICE DAILY FOR PAIN losartan 50 mg tablet 50 mg PO DAILY Qty: 30 4RF Referrals Follow up/Referrals: Viviane Pearson APRN [Nurse Practitioner] - See instructions Alvaro Reina MD [Primary Care Provider] - See instructions Jeremy Dillon DO [Staff Physician] - See instructions Crys Meyer DPM [Staff Physician] - See instructions Activity Restrictions/Add. Instructions Additional Instructions/Restrictions: *weight bearing as tolerated with Walker *RICE, Rest the extremity, Ice 15-20 minutes 3-4 times daily, Compress- wear the stevenson wrap as discussed as much as possible to help reduce swelling and pain, Elevate the extremity when at rest *Stevenson wrap is for support and help control swelling, use it except in the shower. Be sure that is not to tight but not to loose either *Elevate when resting? *Ibuprofen if you can take it as directed on package every 6-8 hours as needed for pain an inflammation. If need something more can take Tylenol in between doses of Ibuprofen to help Immediately follow up with your family doctor for new or worsening of symptoms, or no noticeable improvement over the next 3-5 days Follow up with Podiatry as advised call office for appointment Clinical Impressions Clinical Impression: Ankle sprain Instructions Patient Instructions: DI for Ankle Sprain, Ankle Sprain, How To Perform RICE (Rest, Ice, Compress, Elevate), How to Apply an Stevenson Wrap Discharge ED Provider: Alicia Herring [facility] [place] General Stated complaint: AO02/14 FELL LEFT ANKLE Mode of Arrival: Ambulatory Source of Information: Patient Limitations: No Limitations Time Seen by Provider: 08/30/22 18:30 Description of Symptoms (Recalled from Triage Doc. by RN): PATIENT STATES HER LEG GAVE OUT ON FRIDAY AND SHE FELL. C/O LEFT ANKLE AND FOOT PAIN. DENIES ANY OTHER INJURIES HEENT Symptoms (Recalled from RN notes): No Resp Symptoms (Recalled from RN notes): No Skin Symptoms (Recalled from RN notes): No MS Symptoms (Recalled from RN notes): Yes Functional Status (Recalled from RN notes): WNL History of Present Illness Provider Complaint: Patient states that she has a bad knee that gives out on her sometimes States that her left leg give out on her on Friday and she fell and hurt her left ankle and foot States that ever since she has been having pain and swelling in her ankle and foot states that she has been limping around on it and today it was still swollen and hurting so she came in to get it checked Related Data Home Medications Medication Instructions Recorded Confirmed aspirin 81 mg tablet,delayed 81 mg PO DAILY Supplement 08/13/19 07/26/22 release (Aspir-) multivit with min-folic 1 tab PO DAILY Supplement 08/13/19 07/26/22 acid-lutein 400 mcg-250 mcg chewable tablet (Centrum Silver) methocarbamol 750 mg tablet 750 mg PO QID 07/26/22 Previous Rx's Medication Instructions Recorded sodium,potassium,mag
[2022-08-30 19:10] VITALS: BP 148/91; PULSE 86; RESP 22; TEMP 36.8; O2SAT 96
== END 2022-08-30 19:35 | disposition home or self-care (01) ==
PROVIDERS: Emergency Provider Nurse Practitioner; PCP Family Medicine
DX: S93.402A Sprain of unspecified ligament of left ankle, initial encounter (principal)
CPT/HCPCS: 73610; 73630; 99213; G0463

== ENCOUNTER → 2023-01-18 10:18 | Outpatient (CLI) | payer MEDICARE, OTHER, SELFPAY ==
[2023-01-18 10:48] LABS: Basophils # 0.1 K/mm3 (0-0.2); Basophils % 0.6 % (0.1-2.0); Eosinophils # 0.3 K/mm3 (0.0-0.4); Eosinophils % 2.4 % (0.1-12.0); Hematocrit 37.9 % (37.0-47.0); Hemoglobin 12.2 g/dL (12.2-16.2); Lymphocytes % 18.3 % (10-50); Mean Corpuscular HGB Conc 32.3 g/dL (31.8-35.4); Mean Corpuscular Volume 89.8 fl (81-99); Mean Platelet Volume 7.7 fl (7.4-10.4); Monocytes # 0.6 K/mm3 (0.1-1.0); Monocytes % 5.9 % (1.7-9.3); Neutrophils # 7.8 K/mm3 (1.8-7.8); Neutrophils % 72.9 % (37.0-80.0); Platelet Count 405 K/mm3 (142-424); Red Blood Count 4.22 M/mm3 (4.20-5.40); Red Cell Distribution Width 13.6 % (11.5-17.5); White Blood Count 10.7 K/mm3 (4.8-10.8)
[2023-01-18 11:19] LABS: Alanine Aminotransferase 29 U/L (12-78); Albumin Level 4.3 g/dl (3.5-5.0); Albumin/Globulin Ratio 1.3 (1.1-1.8); Alkaline Phosphatase 75 U/L (38-126); Anion Gap 15.1 mEq/L (5-15); Aspartate Amino Transferase 36 U/L (14-36); Bilirubin,Total 0.2 mg/dl (0.2-1.3); Blood Urea Nitrogen 24 mg/dl (7-17); Calcium 10.1 mg/dl (8.4-10.2); Carbon Dioxide 27 mmol/L (22.0-30.0); Chloride 103 mmol/L (98-107); Cholesterol 176 mg/dl (140-200); Estimated Glomerular Filt Rate 40 ml/min (>60); GFR (African American) 48 ML/MIN (>60); Globulin 3.2 g/dL (1.3-3.2); Glucose 112 mg/dl (74-100); HDL Cholesterol 44 mg/dl (40-60); Potassium 4.1 mmoL/L (3.5-5.1); Sodium 141 mmol/L (136-145); Total Protein,Serum 7.5 g/dl (6.3-8.2); Triglycerides 222 mg/dl (30-150); VLDL Cholesterol 44 mg/dL (0-40)
[2023-01-18 11:30] LABS: Direct LDL Cholesterol 90.26 mg/dL (100-129)
[2023-01-18 11:50] LABS: Thyroid Stimulating Hormone 2.51 uIU/mL (0.465-4.68)
[2023-01-18 13:40] LABS: Hemoglobin A1C 6.8 % (4.0-6.0)
== END ==
PROVIDERS: PCP Family Medicine; Visit Provider Family Medicine
DX: E78.5 Hyperlipidemia, unspecified (principal); E11.9 Type 2 diabetes mellitus without complications; Z00.00 Encounter for general adult medical examination without abnormal findings; S09.90XA Unspecified injury of head, initial encounter; Z79.899 Other long term (current) drug therapy
CPT/HCPCS: 36415; 80053; 80061; 83036; 84443; 85025

== ENCOUNTER 2023-03-13 18:36 | Observation (INO) | payer MEDICARE, OTHER, SELFPAY ==
[2023-03-13 18:36] VITALS: BP 131/67; PULSE 92; RESP 16; TEMP 37.1; O2SAT 88; BMI 34.4
--- NOTE | 2023-03-13 18:45 | XR_ITS ---
PROCEDURE INFORMATION: Exam: XR Pelvis Exam date and time: 03/13/2023 6:53 PM Age: 77 years old Clinical indication: Injury or trauma; Fall; Blunt trauma (contusions or hematomas); Bilateral; Pelvic region TECHNIQUE: Imaging protocol: Radiologic exam of the pelvis. Views: 1 or 2 view. COMPARISON: CR XR PELVIS 1-2V 06/28/2021 12:30 PM FINDINGS: Bones/joints: No evidence of acute fracture or dislocation. No significant degenerative change. Soft tissues: Unremarkable. IMPRESSION: No acute findings.
--- NOTE | 2023-03-13 18:45 | XR_ITS ---
PROCEDURE INFORMATION: Exam: XR Chest Exam date and time: 03/13/2023 6:53 PM Age: 77 years old Clinical indication: Injury or trauma; Fall; Blunt trauma (contusions or hematomas) TECHNIQUE: Imaging protocol: Radiologic exam of the chest. Views: 1 view. COMPARISON: None FINDINGS: Lungs: Hypoaeration of the lungs with mild bibasilar opacities. Pleural spaces: No pleural effusion. No pneumothorax. Heart/Mediastinum: Cardiomediastinal silhouette is normal. Aortic calcifications. Bones/joints: No acute abnormality. IMPRESSION: Hypoaeration of the lungs with mild non-specific bibasilar opacities, most likely atelectasis.
[2023-03-13 19:13] LABS: Basophils # 0.1 K/mm3 (0-0.2); Basophils % 0.5 % (0.1-2.0); Chloride 101 mmol/L (98-107); Eosinophils # 0.3 K/mm3 (0.0-0.4); Eosinophils % 2.4 % (0.1-12.0); Hematocrit 37.7 % (37.0-47.0); Hemoglobin 12.6 g/dL (12.2-16.2); Lymphocytes # 1.9 K/mm3 (0.7-4.5); Mean Corpuscular HGB Conc 33.3 g/dL (31.8-35.4); Mean Corpuscular Hemoglobin 30.4 pg (27.0-31.2); Mean Corpuscular Volume 91.3 fl (81-99); Mean Platelet Volume 8.1 fl (7.4-10.4); Monocytes # 0.9 K/mm3 (0.1-1.0); Monocytes % 7.4 % (1.7-9.3); Neutrophils # 8.3 K/mm3 (1.8-7.8); Neutrophils % 72.6 % (37.0-80.0); Platelet Count 397 K/mm3 (142-424); Potassium 3.9 mmoL/L (3.5-5.1); Red Blood Count 4.13 M/mm3 (4.20-5.40); Red Cell Distribution Width 13.3 % (11.5-17.5); Sodium 140 mmol/L (136-145); White Blood Count 11.4 K/mm3 (4.8-10.8)
[2023-03-13 19:16] LABS: Alanine Aminotransferase 30 U/L (12-78); Alkaline Phosphatase 96 U/L (38-126); Anion Gap 13.9 mEq/L (5-15); Aspartate Amino Transferase 46 U/L (14-36); Bilirubin,Total 0.4 mg/dl (0.2-1.3); Blood Urea Nitrogen 23 mg/dl (7-17); Calcium 10.3 mg/dl (8.4-10.2); Carbon Dioxide 29 mmol/L (22.0-30.0); Creatinine Clearance Estimated 57 mL/min (50-200); Estimated Glomerular Filt Rate 44 ml/min (>60); GFR (African American) 53 ML/MIN (>60); Globulin 4.1 g/dL (1.3-3.2); Glucose 172 mg/dl (74-100); Total Protein,Serum 8.1 g/dl (6.3-8.2)
--- NOTE | 2023-03-13 19:45 | CT_ITS ---
PROCEDURE INFORMATION: Exam: CT Lumbar Spine Without Contrast Exam date and time: 03/13/2023 8:21 PM Age: 77 years old Clinical indication: Injury or trauma; Fall; Blunt trauma (contusions or hematomas); Additional info: Midline pain after a fall TECHNIQUE: Imaging protocol: Computed tomography of the lumbar spine without contrast. Only bone windows submitted. Radiation optimization: All CT scans at this facility use at least one of these dose optimization techniques: automated exposure control; mA and/or kV adjustment per patient size (includes targeted exams where dose is matched to clinical indication); or iterative reconstruction. REPORTING DATA: Count of CT and Cardiac NM exams in prior 12 months: This patient has received 0 known CTs and 0 known cardiac nuclear medicine studies in the 12 months prior to the current study. COMPARISON: CT LUMBAR SPINE WO CON 06/28/2021 12:37 PM FINDINGS: Bones/joints: Limbus vertebra at L4. Vertebral body heights are otherwise maintained. There is stable minimal anterolisthesis of L4 on L5, otherwise alignment maintained. Degenerative changes with multilevel disc space narrowing and vacuum disc phenomenon. Sclerotic changes at L2-L3 similar to prior. Facet arthropathy most notably of the lower lumbar spine. No severe osseous neural foraminal or spinal canal stenosis. Findings not significantly changed from prior. Stomach and bowel: Colonic diverticulosis. Vasculature: Calcified aortic atherosclerosis. No aneurysm. Soft tissues: Unremarkable. IMPRESSION: No acute osseous abnormality. Degenerative changes of the lumbar spine as above.
--- NOTE | 2023-03-13 19:46 | HMH.EDGENADL ---
Discharge Plan Disposition Patient Disposition: Admitted Prescriptions Prescriptions: No Action Centrum Silver 400-250 mcg tablet,chewable 1 tab PO DAILY aspirin [Aspir-81] 81 mg tablet,delayed release (DR/EC) 81 mg PO DAILY gabapentin 300 mg capsule 300 mg PO HS Qty: 30 5RF omeprazole 40 mg capsule,delayed release(DR/EC) 40 mg PO DAILY Qty: 90 3RF diphenoxylate-atropine 2.5-0.025 mg tablet 1 tab PO QID PRN (Reason: diarrhea) Qty: 90 0RF losartan 50 mg tablet 50 mg PO DAILY meclizine 12.5 mg tablet See Rx Instructions .ROUTE .COMPLEX Rx Instructions: Take 1 Tablet by mouth twice daily for pain. pravastatin 10 mg tablet See Rx Instructions .ROUTE .COMPLEX Rx Instructions: TAKE 1 TABLET BY MOUTH DAILY Referrals Follow up/Referrals: Florentino Mccormick MD [Primary Care Provider] - See instructions Clinical Impressions Clinical Impression: Adult failure to thrive, Fall, Lumbar pain Discharge ED Provider: Wilfrido Coello General Adult HPI General Chief complaint: Fall Stated complaint: Numbness Time Seen by Provider: 03/13/23 19:32 Mode of Arrival: EMS Source of Information: Patient Limitations: No Limitations Description of Symptoms (Recalled from ER Triage Doc. by RN): pt states that she tripped over carpet and fell this morning @ 7:30 and is c/o bilateral leg numbness. pt denies any loc and pain. pt has history of chronic lower back pain. EMS FSBS 136 History of Present Illness HPI narrative: Patient is a 77-year-old female who has been progressively declining over the last year year and a half according to her daughter presents today after a fall. She states she has been generally weak which has been worsening over that time. Nothing acutely changed today. She fell earlier this morning and today is the first day she has been unable to get up and walk around since an episode like this. She does believe that she hit her lower back on a toilet she was already having some back pain preceding this but had worsening lower back pain since that time. She complained of some lower extremity paresthesias. She was noted to be mildly hypoxic in route and she had no respiratory symptoms including fevers cough she currently denies any shortness of breath or respiratory symptoms. She also denies any significant lower extremity numbness or weakness to me. She had no urinary or bowel incontinence that is new no saddle anesthesia no paralysis. Her daughter who is with her states that she try to get her up to walk her multiple times today and she was unable to walk even with the assistance of a walker. They are very concerned that she is got to the point from a progressive decline standpoint that she can no longer care for herself. Related Data Home Medications Medication Instructions Recorded Confirmed aspirin 81 mg tablet,delayed 81 mg PO DAILY Supplement 08/13/19 03/13/23 release (Aspir-) multivit with min-folic 1 tab PO DAILY Supplement 08/13/19 03/13/23 acid-lutein 400 mcg-250 mcg chewable tablet (Centrum Silver) losartan 50 mg tablet 50 mg PO DAILY High Blood Pressure 03/13/23 03/13/23 meclizine 12.5 mg tablet See Rx Instructions .Route 03/13/23 03/13/23 .COMPLEX . pravastatin 10 mg tablet See Rx Instructions .Route 03/13/23 03/13/23 .COMPLEX High Cholesterol Previous Rx's Medication Instructions Recorded gabapentin 300 mg capsule 300 mg PO HS nerve pain #30 caps 01/17/23 omeprazole 40 mg capsule,delayed 40 mg PO DAILY GERD #90 caps 01/17/23 release diphenoxylate-atropine 2.5 1 tab PO QID PRN diarrhea #90 tabs 02/19/23 mg-0.025 mg tablet Allergies Allergy/AdvReac Type Severity Reaction Status Date / Time Penicillins Allergy Verified 01/17/23 09:50 [facility] Disclaimer: The information contained in this section may have been updated after the patient was seen, as this information can be updated by other users. Medical History (U
--- NOTE | 2023-03-13 21:27 | PC.NURSE ---
OBSERVATION ADMISSION TO 204 WITH DX OF FAILURE TO THRIVE TO SERVICE OF HOSPITALIST.
[2023-03-13 21:50] VITALS: BP 132/67; PULSE 88; RESP 16; TEMP 37.1
[2023-03-13 22:00] VITALS: BP 153/73; PULSE 87; RESP 18; TEMP 36.7; O2SAT 96; BMI 32.8
--- NOTE | 2023-03-13 22:06 | EXP.HP ---
History of Present Illness *Admission Date: 03/13/23 *Reason for visit:: fall/weakness *History of present illness: This is a 77-year-old female with PMHx multiples falls, GERD, CKD, DM type 2, bilateral arthopathy of the knees, who has been progressively declining over the last year according to her daughter presented today for evaluation after a fall. She stated she has been generally weak which has been worsening over that time. Nothing acutely changed today. She fell earlier this morning. She does believe that she hit her lower back on a toilet she was already having some back pain preceding this but had worsening lower back pain since that time. She complained of some lower extremity paresthesias. Her daughter who is with her stated that she tried to get her up to walk her multiple times today and she was unable to walk even with the assistance of a walker. EMS was called since they are very concerned that she is got to the point from a progressive decline standpoint that she can no longer care for herself. admitted for further management. [facility] Disclaimer: The information contained in this section may have been updated after the patient was seen, as this information can be updated by other users. Medical History (Updated 03/14/23 @ 01:47 by Basilio Gonzalez APRN) Arthropathy of left knee Chronic GERD Diarrhea Dizziness Dyslipidemia Insomnia Onychogryposis of toenail Type 2 diabetes mellitus Social History (Updated 03/13/23 @ 22:47 by Sabrina Reina RN) Smoking Status: Never smoker alcohol intake: never substance use type: denies use current occupational status: other Travel in the last 8 weeks: None household members: spouse housing: house caffeine: Yes Review of Systems Review of Systems Review of systems:: pertinent systems reviewed and negative unless documented below Meds Home Medications and Allergies Home Medications Medication Instructions Recorded Confirmed Type aspirin 81 mg tablet,delayed 81 mg PO DAILY Heart Disease 08/13/19 03/13/23 History release (Aspir-) multivit with min-folic 1 tab PO DAILY Supplement 08/13/19 03/13/23 History acid-lutein 400 mcg-250 mcg chewable tablet (Centrum Silver) gabapentin 300 mg capsule 300 mg PO HS nerve pain #30 caps 01/17/23 03/13/23 Rx diphenoxylate-atropine 2.5 1 tab PO QID PRN diarrhea #90 tabs 02/19/23 03/13/23 Rx mg-0.025 mg tablet losartan 50 mg tablet 50 mg PO DAILY High Blood Pressure 03/13/23 03/13/23 History meclizine 12.5 mg tablet 12.5 mg PO BID dizziness 03/13/23 03/13/23 History omeprazole 40 mg capsule,delayed 40 mg PO DAILY Acid Reflux 03/13/23 03/13/23 History release pravastatin 10 mg tablet 10 mg PO HS High Cholesterol 03/13/23 03/13/23 History New Prescriptions to Start Prescriptions: Allergies Allergy/AdvReac Type Severity Reaction Status Date / Time Penicillins Allergy Verified 01/17/23 09:50 Exam Data for Last 24 hours Vital signs and Labs for Last 24 Hours: Temp Pulse Resp BP Pulse Ox O2 Del Method O2 Flow Rate 98.8 F 88 16 132/67 88 L Nasal Cannula 2 03/13/23 21:50 03/13/23 21:50 03/13/23 21:50 03/13/23 21:50 03/13/23 18:36 03/13/23 21:50 03/13/23 21:50 Laboratory Results - last 24 hr 03/13/23 18:50: WBC 11.4 H, RBC 4.13 L, Hgb 12.6, Hct 37.7, MCV 91.3, MCH 30.4, MCHC 33.3, RDW 13.3, Plt Count 397, MPV 8.1, Neut % (Auto) 72.6, Lymph % (Auto) 17.0, Gonzales % (Auto) 7.4, Eos % (Auto) 2.4, Baso % (Auto) 0.5, Neut # (Auto) 8.3 H, Lymph # (Auto) 1.9, Gonzales # (Auto) 0.9, Eos # (Auto) 0.3, Baso # (Auto) 0.1, Sodium 140, Potassium 3.9, Chloride 101, Carbon Dioxide 29, Anion Gap 13.9, BUN 23 H, Creatinine 1.20 H, Estimated Creat Clear 57, Estimated GFR 44 L, Est GFR ( Amer) 53 L, Glucose 172 H, Calcium 10.3 H, Total Bilirubin 0.4, AST 46 H, ALT 30, Alkaline Phosphatase 96, Total Protein 8.1, Albumin 4.0, Globulin 4.1 H, Albumin/Globulin Ratio 1.0 L I & O for Last
--- NOTE | 2023-03-13 22:15 | PC.NURSE ---
pt to floor at this time via stretcher
[2023-03-14] VITALS (7 sets, daily range): BP systolic 115–148; BP diastolic 58–70; PULSE 82–92; RESP 18–20; TEMP 36.8–37; O2SAT 92–96; BMI 32.8; BMI 32.7
[2023-03-14 07:12] LABS: Basophils # 0.1 K/mm3 (0-0.2); Basophils % 0.5 % (0.1-2.0); Eosinophils # 0.3 K/mm3 (0.0-0.4); Eosinophils % 2.9 % (0.1-12.0); Hematocrit 36.4 % (37.0-47.0); Hemoglobin 11.8 g/dL (12.2-16.2); Lymphocytes % 20.2 % (10-50); Mean Corpuscular HGB Conc 32.5 g/dL (31.8-35.4); Mean Corpuscular Hemoglobin 29.7 pg (27.0-31.2); Mean Corpuscular Volume 91.4 fl (81-99); Mean Platelet Volume 7.9 fl (7.4-10.4); Monocytes # 0.6 K/mm3 (0.1-1.0); Monocytes % 6.4 % (1.7-9.3); Neutrophils # 6.9 K/mm3 (1.8-7.8); Platelet Count 351 K/mm3 (142-424); Red Blood Count 3.98 M/mm3 (4.20-5.40); Red Cell Distribution Width 13.3 % (11.5-17.5); White Blood Count 9.8 K/mm3 (4.8-10.8)
[2023-03-14 07:33] LABS: Anion Gap 12.7 mEq/L (5-15); Blood Urea Nitrogen 22 mg/dl (7-17); Calcium 9.4 mg/dl (8.4-10.2); Carbon Dioxide 29 mmol/L (22.0-30.0); Chloride 102 mmol/L (98-107); Creatinine Clearance Estimated 65 mL/min (50-200); Estimated Glomerular Filt Rate 54 ml/min (>60); GFR (African American) 65 ML/MIN (>60); Glucose 129 mg/dl (74-100); Potassium 3.7 mmoL/L (3.5-5.1); Sodium 140 mmol/L (136-145)
--- NOTE | 2023-03-14 07:47 | HMH.PHAINT1 ---
Pharmacy Intervention Comments: HOME MEDICATION LIST VERIFIED USING LIST FROM OUTPATIENT PHARMACY
--- NOTE | 2023-03-14 10:47 | HMH.OTEV ---
OT Inpatient Evaluation Rehab OT IP Evaluation Start: 03/14/23 07:45 Freq: ONCE Status: Active Protocol: [facility]14[facility]23 [facility] (Rec: 03/14/23 10:46 [facility] [id number]) Rehab OT IP Assessment Subjective History Pt orineted x3 on arrival. Pt agreeable to engage in therapy session. Pt admittd via ED on 03/13/23 due to weakness and fall. Pt is a 77 -year-old female with PMHx multiples falls, GERD, CKD, DM type 2, bilateral arthopathy of the knees, who has been progressively declining over the last year according to her daughter. Pt reports her and her currently reside with their daugther and other family members. Pt has been requiring assistance with all ADLs. Pt is dependent upon family for completion of all IADLs. Pt claims she was able to transfer short distances with rolling walker. Subjective I am going to need help I think. Objective Patient Orientation Person,Place,Birthday Upper Extremity Gross ROM Min Limitation <25% Shoulder ROM Limitations Muscle Weakness Elbow ROM Limitations Muscle Weakness Wrist Limitations of Range of Motion Muscle Weakness Bed Mobility bed mobility-scooting,bed mobility - supine/sit,bed mobility - rolling Assist Level Maximum x 2 (75% assist) Transfer Training Sit/Stand Transfer Assist Level Maximum x 2 (75% assist) Lower Body Dressing Ability Unable/Dependant Performing Toilet Hygiene Ability Unable/Dependant Rehab OT IP prob,goals,plan Problems Date of Evaluation: 03/14/23 OT IP Problems Bed Mobility,Transfers,Balance ,Self care,Safety Rehab Potential Rehab Potential Good Equipment Needs Assistive Devices Rolling / Wheeled Walker Plan OT intervention Plan Bed Mobility,Transfers,Balance ,Self care,Safety,Therapeutic Exercise OT Plan Frequency BID Duration LOS Discharge Goals Bed Mobility Ability Assistance x1 Sit to Stand Chair Tra
[2023-03-14 11:07] LABS: POC Glucose,Bedside 185 (70-110)
--- NOTE | 2023-03-14 11:31 | SW/DCPLANNER ---
Addendum entered by Hailey Paulson RN 03/17/23 10:08: Alicia from [facility] states patient is good to come to [facility] today. Addendum entered by Hailey Paulson RN 03/17/23 07:05: Voicemail from [facility] that patient has been approved to go to [facility]. Attempted to contact Alicia at [facility] to see if patient could discharge today. Addendum entered by Hailey Paulson RN 03/14/23 14:17: Alicia from [facility] states they are starting precert for patient. Notified patient and patient's daughter. DANIEL Hyatt Addendum entered by Shruti Lee 03/14/23 13:22: Alicia w/ [facility] is currently reviewing patient information. Original Note: I spoke with this patient, and daughter regarding discharge plans. Patient resides at home w/ her but has had multiple falls and is requiring a lot of assistance at home. PT/OT evaluated patient and recommended SNF level of care. Patient stated that her daughter works at [facility] and has a friend there. Patient would prefer to discharge to [facility] at time of discharge for SNF level of care. Patient is agreeable for information to be faxed to [facility] this AM. I will follow up with Alicia at [facility] once patient information is reviewed.
--- NOTE | 2023-03-14 12:49 | HMH.PTEV ---
Physical Therapy Evaluation Rehab PT IP Evaluation Start: 03/14/23 07:45 Freq: ONCE Status: Active Protocol: Document 03/14/23 12:36 HWJORDAN (Rec: 03/14/23 12:48 HWADE [id number]) Subjective/History History History Pt is a 77 year old female that presented to [facility] ED with her daughter for evaluation of recent fall. Pt reported that she has been feeling generally weak which has worsened over the past year. Pt reported that she hit her back during the fall and complained of lower extremity paresthesias. Pt was unable to walk with a walker after the fall so EMS was called. Upon arrival to the ER CT lumbar spine, and thoracic spine, as well as chest x-ray was negative for acute fracture. Pt was admitted for inpatient management of generalized weakness. PMH: GERD, CKD, DM type 2, bilateral arthopathy of the knees Subjective Subjective Pt presents in semi-fowlers position in bed, pleasant and agreeable to therapy initial evaluation. Pt denies reports of pain. Pt states that she has had multiple falls at home recently and has felt really weak. Pt reports that she lives at home with her daughter, and ROSMERY. Pt reports that she lives in a multi-level home with a ramp to enter. Pt states that she is able to stay on the main level. Pt reports that she uses a walker for ambulation and that her daughter/ assists with other B/IADL's. Pt performed rolling R with max A x1. Pt performed sidelying to sit on EOB with Max A x2 to assist trunk to upright position and place BLE
[2023-03-14 16:03] LABS: POC Glucose,Bedside 124 (70-110)
--- NOTE | 2023-03-14 18:33 | EXP.PN ---
Subjective *Date: 03/14/23 *Time: 18:33 Interval history: No acute events overnight. No pain. No dyspnea. No nausea. Exam Data for Last 24 hours Vital signs and Labs for Last 24 Hours: Temp Pulse Resp BP Pulse Ox O2 Del Method O2 Flow Rate 98.4 F 82 18 119/62 96 Room Air 2 03/14/23 16:00 03/14/23 16:00 03/14/23 16:00 03/14/23 16:00 03/14/23 16:00 03/14/23 17:25 03/13/23 21:50 Laboratory Results - last 24 hr 03/13/23 18:50: WBC 11.4 H, RBC 4.13 L, Hgb 12.6, Hct 37.7, MCV 91.3, MCH 30.4, MCHC 33.3, RDW 13.3, Plt Count 397, MPV 8.1, Neut % (Auto) 72.6, Lymph % (Auto) 17.0, [place] % (Auto) 7.4, Eos % (Auto) 2.4, Baso % (Auto) 0.5, Neut # (Auto) 8.3 H, Lymph # (Auto) 1.9, [place] # (Auto) 0.9, Eos # (Auto) 0.3, Baso # (Auto) 0.1, Sodium 140, Potassium 3.9, Chloride 101, Carbon Dioxide 29, Anion Gap 13.9, BUN 23 H, Creatinine 1.20 H, Estimated Creat Clear 57, Estimated GFR 44 L, Est GFR ( Amer) 53 L, Glucose 172 H, Calcium 10.3 H, Total Bilirubin 0.4, AST 46 H, ALT 30, Alkaline Phosphatase 96, Total Protein 8.1, Albumin 4.0, Globulin 4.1 H, Albumin/Globulin Ratio 1.0 L 03/14/23 06:40: WBC 9.8, RBC 3.98 L, Hgb 11.8 L, Hct 36.4 L, MCV 91.4, MCH 29.7, MCHC 32.5, RDW 13.3, Plt Count 351, MPV 7.9, Neut % (Auto) 70.0, Lymph % (Auto) 20.2, [place] % (Auto) 6.4, Eos % (Auto) 2.9, Baso % (Auto) 0.5, Neut # (Auto) 6.9, Lymph # (Auto) 2.0, [place] # (Auto) 0.6, Eos # (Auto) 0.3, Baso # (Auto) 0.1, Sodium 140, Potassium 3.7, Chloride 102, Carbon Dioxide 29, Anion Gap 12.7, BUN 22 H, Creatinine 1.00, Estimated Creat Clear 65, Estimated GFR 54 L, Est GFR ( Amer) 65 D, Glucose 129 H D, Calcium 9.4 03/14/23 10:59: POC Glucose 185 H 03/14/23 15:56: POC Glucose 124 H I & O for Last 24 hours: Intake & Output 03/11/23 03/12/23 03/13/23 03/14/23 23:59 23:59 23:59 23:59 Intake Total 770 / 770 Output Total 400 / 400 Balance 370 / 370 Weight 87.175 kg 87 kg Constitutional Constitutional: no acute distress *Routine HEENT Exam Head: Present normocephalic Eye: Present EOMI and PERRL ENT: Present mucous membranes moist *Routine Neck Exam Neck: Present supple; Absent lymphadenopathy *Routine Respiratory Exam Respiratory: Present CTA bilaterally *Routine Cardiovascular Exam Cardiovascular: Present RRR *Routine Abdominal Exam Abdominal: Present soft and normoactive bowel sounds; Absent tenderness *Routine Extremities Exam Extremities: Absent cyanosis, clubbing or edema *Routine Skin Exam Skin: Present warm; Absent rash *Routine Neurological Exam Neurological: Present alert and oriented X3 Assessment and Plan *Assessment and plan (1) Generalized weakness: Status: Acute Category: Medical Code(s): R53.1 - Weakness (2) Fall: Status: Acute Qualifiers: Encounter type: initial encounter Qualified Code(s): W19.XXXA - Unspecified fall, initial encounter Category: Medical Code(s): W19.XXXA - Unspecified fall, initial encounter (3) Multiple falls: Status: Acute Category: Medical Code(s): R29.6 - Repeated falls (4) Leukocytosis, unspecified: Status: Acute Qualifiers: Leukocytosis type: unspecified Qualified Code(s): D72.829 - Elevated white blood cell count, unspecified Category: Medical Code(s): D72.829 - Elevated white blood cell count, unspecified (5) Adult failure to thrive: Status: Acute Category: Medical Code(s): R62.7 - Adult failure to thrive (6) Stage 3b chronic kidney disease: Status: Acute Category: Medical Code(s): N18.32 - Chronic kidney disease, stage 3b (7) Arthropathy of left knee: Status: Acute Category: Medical Code(s): M17.12 - Unilateral primary osteoarthritis, left knee (8) Dyslipidemia: Status: Acute Category: Medical Code(s): E78.5 - Hyperlipidemia, unspecified (9) Type 2 diabetes mellitus: Status: A
[2023-03-14 20:54] LABS: POC Glucose,Bedside 182 (70-110)
[2023-03-15 04:00] VITALS: BP 130/65; PULSE 80; RESP 18; TEMP 36.8; O2SAT 94; BMI 33.3
[2023-03-15 05:17] LABS: POC Glucose,Bedside 140 (70-110)
--- NOTE | 2023-03-15 06:33 | PC.NURSE ---
PATIENT A/O X 4. . ONLY COMPLAINT WAS CRAMPING PAIN IN RIGHT FOOT. VITAL SIGNS STABLE/AFEBRILE. HAS PUREWICK. UOP DARK CLEAR YELLOW.
[2023-03-15 08:00] VITALS: BP 129/66; PULSE 95; RESP 20; TEMP 37.2; O2SAT 95
[2023-03-15 11:26] LABS: POC Glucose,Bedside 156 (70-110)
[2023-03-15 12:00] VITALS: BP 130/66; PULSE 97; RESP 18; TEMP 36.8; O2SAT 92
--- NOTE | 2023-03-15 14:10 | EXP.PN ---
Subjective *Date: 03/15/23 *Time: 14:56 Interval history: No acute events overnight. Exam Data for Last 24 hours Vital signs and Labs for Last 24 Hours: Temp Pulse Resp BP Pulse Ox O2 Del Method O2 Flow Rate 98.3 F 97 H 18 130/66 92 L Room Air 2 03/15/23 12:00 03/15/23 12:00 03/15/23 12:00 03/15/23 12:00 03/15/23 12:00 03/15/23 13:00 03/13/23 21:50 Laboratory Results - last 24 hr 03/14/23 15:56: POC Glucose 124 H 03/14/23 20:41: POC Glucose 182 H 03/15/23 05:08: POC Glucose 140 H 03/15/23 11:19: POC Glucose 156 H I & O for Last 24 hours: Intake & Output 03/12/23 03/13/23 03/14/23 03/15/23 23:59 23:59 23:59 23:59 Intake Total 1355 / 1355 480 / 480 Output Total 950 / 950 Balance 405 / 405 480 / 480 Weight 87.175 kg 87 kg 88.587 kg Microbiology Reports for the Last 24 Hours: Microbiology 03/14/23 03:48 Urine,Clean Catch Urine Culture - Preliminary NO GROWTH AFTER 24 HOURS Constitutional Constitutional: no acute distress *Routine HEENT Exam Head: Present normocephalic Eye: Present EOMI and PERRL ENT: Present mucous membranes moist *Routine Neck Exam Neck: Present supple; Absent lymphadenopathy *Routine Respiratory Exam Respiratory: Present CTA bilaterally *Routine Cardiovascular Exam Cardiovascular: Present RRR *Routine Abdominal Exam Abdominal: Present soft and normoactive bowel sounds; Absent tenderness *Routine Extremities Exam Extremities: Absent cyanosis, clubbing or edema *Routine Skin Exam Skin: Present warm; Absent rash *Routine Neurological Exam Neurological: Present alert and oriented X3 Assessment and Plan *Assessment and plan (1) Generalized weakness: Status: Acute Category: Medical Code(s): R53.1 - Weakness (2) Fall: Status: Acute Qualifiers: Encounter type: initial encounter Qualified Code(s): W19.XXXA - Unspecified fall, initial encounter Category: Medical Code(s): W19.XXXA - Unspecified fall, initial encounter (3) Multiple falls: Status: Acute Category: Medical Code(s): R29.6 - Repeated falls (4) Leukocytosis, unspecified: Status: Acute Qualifiers: Leukocytosis type: unspecified Qualified Code(s): D72.829 - Elevated white blood cell count, unspecified Category: Medical Code(s): D72.829 - Elevated white blood cell count, unspecified (5) Adult failure to thrive: Status: Acute Category: Medical Code(s): R62.7 - Adult failure to thrive (6) Stage 3b chronic kidney disease: Status: Acute Category: Medical Code(s): N18.32 - Chronic kidney disease, stage 3b (7) Arthropathy of left knee: Status: Acute Category: Medical Code(s): M17.12 - Unilateral primary osteoarthritis, left knee (8) Dyslipidemia: Status: Acute Category: Medical Code(s): E78.5 - Hyperlipidemia, unspecified (9) Type 2 diabetes mellitus: Status: Acute Qualifiers: Diabetes mellitus terminal make up operator insulin use: without terminal make up operator use Diabetes mellitus complication status: with kidney complications Diabetes mellitus complication detail: with chronic kidney disease Chronic kidney disease stage: stage 3 (moderate) Chronic kidney disease stage 3 subtype: stage 3a (GFR 45-59) Qualified Code(s): E11.22 - Type 2 diabetes mellitus with diabetic chronic kidney disease; N18.31 - Chronic kidney disease, stage 3a Category: Medical Code(s): E11.9 - Type 2 diabetes mellitus without complications (10) Chronic GERD: Status: Acute Category: Medical Code(s): K21.9 - Gastro-esophageal reflux disease without esophagitis (11) HTN (hypertension): Status: Acute Qualifiers: Hypertension type: unspecified Qualified Code(s): I10 - Essential (primary) hypertension Category: Medical Code(s): I10 - Essential (chacha
[2023-03-15 16:00] VITALS: BP 129/69; PULSE 85; RESP 15; TEMP 36.9; O2SAT 97
--- NOTE | 2023-03-15 18:26 | PC.NURSE ---
pt has done well this shift, no acute changes from prev shift. pt has been in bed all day. x1 bm this am. daughter and son in law currently at bs, cb within reach no concerns at this time.
[2023-03-15 20:00] VITALS: BP 115/67; PULSE 85; RESP 17; TEMP 36.5; O2SAT 92
[2023-03-15 20:05] LABS: POC Glucose,Bedside 177 (70-110)
[2023-03-16] VITALS: BP 126/62; PULSE 75; RESP 17; TEMP 36.7; O2SAT 91
[2023-03-16 04:00] VITALS: BP 134/64; PULSE 79; RESP 16; TEMP 36.6; O2SAT 95; BMI 34.1
[2023-03-16 05:35] LABS: POC Glucose,Bedside 137 (70-110)
--- NOTE | 2023-03-16 06:23 | PC.NURSE ---
PATIENT A/O X 4. RESTING IN BED. SAYS SHE IS READY FOR BREAKFAST. VITAL SIGNS STABLE/AFEBRILE. FSBS THIS AM IS 137.
[2023-03-16 08:00] VITALS: BP 129/73; PULSE 84; RESP 20; TEMP 36.7; O2SAT 95
--- NOTE | 2023-03-16 08:04 | EXP.PN ---
Subjective *Date: 03/16/23 *Time: 12:25 Interval history: No acute events overnight. No pain. She was helped to the bedside chair and has been too weak to ambulate. Exam Data for Last 24 hours Vital signs and Labs for Last 24 Hours: Temp Pulse Resp BP Pulse Ox O2 Del Method O2 Flow Rate 97.9 F 79 16 134/64 95 Room Air 2 03/16/23 04:00 03/16/23 04:00 03/16/23 04:00 03/16/23 04:00 03/16/23 04:00 03/16/23 06:52 03/13/23 21:50 Laboratory Results - last 24 hr 03/15/23 11:19: POC Glucose 156 H 03/15/23 19:59: POC Glucose 177 H 03/16/23 05:27: POC Glucose 137 H I & O for Last 24 hours: Intake & Output 03/13/23 03/14/23 03/15/23 03/16/23 23:59 23:59 23:59 23:59 Intake Total 1355 / 1355 1024 / 1264 1071 / 1071 Output Total 950 / 950 0 / 0 500 / 500 Balance 405 / 405 1024 / 1264 571 / 571 Weight 87.175 kg 87 kg 88.587 kg 90.628 kg Microbiology Reports for the Last 24 Hours: Microbiology 03/14/23 03:48 Urine,Clean Catch Urine Culture - Final Multiple organisms, suggests contamination. Constitutional Constitutional: no acute distress *Routine HEENT Exam Head: Present normocephalic Eye: Present EOMI and PERRL ENT: Present mucous membranes moist *Routine Neck Exam Neck: Present supple; Absent lymphadenopathy *Routine Respiratory Exam Respiratory: Present CTA bilaterally *Routine Cardiovascular Exam Cardiovascular: Present RRR *Routine Abdominal Exam Abdominal: Present soft and normoactive bowel sounds; Absent tenderness *Routine Extremities Exam Extremities: Absent cyanosis, clubbing or edema *Routine Skin Exam Skin: Present warm; Absent rash *Routine Neurological Exam Neurological: Present alert and oriented X3 Assessment and Plan *Assessment and plan (1) Generalized weakness: Status: Acute Category: Medical Code(s): R53.1 - Weakness (2) Fall: Status: Acute Qualifiers: Encounter type: initial encounter Qualified Code(s): W19.XXXA - Unspecified fall, initial encounter Category: Medical Code(s): W19.XXXA - Unspecified fall, initial encounter (3) Multiple falls: Status: Acute Category: Medical Code(s): R29.6 - Repeated falls (4) Leukocytosis, unspecified: Status: Acute Qualifiers: Leukocytosis type: unspecified Qualified Code(s): D72.829 - Elevated white blood cell count, unspecified Category: Medical Code(s): D72.829 - Elevated white blood cell count, unspecified (5) Adult failure to thrive: Status: Acute Category: Medical Code(s): R62.7 - Adult failure to thrive (6) Stage 3b chronic kidney disease: Status: Acute Category: Medical Code(s): N18.32 - Chronic kidney disease, stage 3b (7) Arthropathy of left knee: Status: Acute Category: Medical Code(s): M17.12 - Unilateral primary osteoarthritis, left knee (8) Dyslipidemia: Status: Acute Category: Medical Code(s): E78.5 - Hyperlipidemia, unspecified (9) Type 2 diabetes mellitus: Status: Acute Qualifiers: Diabetes mellitus afternoon babysitter insulin use: without custodial use Diabetes mellitus complication status: with kidney complications Diabetes mellitus complication detail: with chronic kidney disease Chronic kidney disease stage: stage 3 (moderate) Chronic kidney disease stage 3 subtype: stage 3a (GFR 45-59) Qualified Code(s): E11.22 - Type 2 diabetes mellitus with diabetic chronic kidney disease; N18.31 - Chronic kidney disease, stage 3a Category: Medical Code(s): E11.9 - Type 2 diabetes mellitus without complications (10) Chronic GERD: Status: Acute Category: Medical Code(s): K21.9 - Gastro-esophageal reflux disease without esophagitis (11) HTN (hypertension): Status: Acute Qualifiers: Hypertension type: unspecified Qualified Code(
[2023-03-16 11:25] LABS: POC Glucose,Bedside 141 (70-110)
[2023-03-16 16:00] VITALS: BP 113/57; PULSE 86; RESP 19; TEMP 36.9; O2SAT 94
[2023-03-16 16:52] LABS: POC Glucose,Bedside 236 (70-110)
--- NOTE | 2023-03-16 18:55 | PC.NURSE ---
Patient got up to chair today. Patient's vitqal signs stable.
[2023-03-16 19:49] VITALS: BP 135/69; PULSE 94; RESP 22; TEMP 37.1; O2SAT 93
[2023-03-16 20:40] LABS: POC Glucose,Bedside 164 (70-110)
[2023-03-17 04:00] VITALS: BP 136/67; PULSE 89; RESP 24; TEMP 36.9; O2SAT 95; BMI 34.2
[2023-03-17 06:16] LABS: POC Glucose,Bedside 130 (70-110)
[2023-03-17 07:48] VITALS: BP 154/76; PULSE 88; RESP 21; TEMP 36.9; O2SAT 95
[2023-03-17 07:55] LABS: Basophils # 0.1 K/mm3 (0-0.2); Basophils % 0.5 % (0.1-2.0); Eosinophils # 0.4 K/mm3 (0.0-0.4); Eosinophils % 3.4 % (0.1-12.0); Hematocrit 35.5 % (37.0-47.0); Hemoglobin 11.6 g/dL (12.2-16.2); Lymphocytes # 2.1 K/mm3 (0.7-4.5); Lymphocytes % 20.1 % (10-50); Mean Corpuscular HGB Conc 32.6 g/dL (31.8-35.4); Mean Corpuscular Hemoglobin 30.1 pg (27.0-31.2); Mean Corpuscular Volume 92.4 fl (81-99); Mean Platelet Volume 8.2 fl (7.4-10.4); Monocytes # 0.7 K/mm3 (0.1-1.0); Monocytes % 6.7 % (1.7-9.3); Neutrophils # 7.2 K/mm3 (1.8-7.8); Neutrophils % 69.2 % (37.0-80.0); Platelet Count 360 K/mm3 (142-424); Red Blood Count 3.85 M/mm3 (4.20-5.40); Red Cell Distribution Width 13.3 % (11.5-17.5); White Blood Count 10.4 K/mm3 (4.8-10.8)
[2023-03-17 08:05] LABS: Anion Gap 11.5 mEq/L (5-15); Blood Urea Nitrogen 14 mg/dl (7-17); Carbon Dioxide 29 mmol/L (22.0-30.0); Chloride 101 mmol/L (98-107); Creatinine Clearance Estimated 68 mL/min (50-200); Estimated Glomerular Filt Rate 70 ml/min (>60); GFR (African American) 84 ML/MIN (>60); Glucose 127 mg/dl (74-100); Potassium 3.5 mmoL/L (3.5-5.1); Sodium 138 mmol/L (136-145)
--- NOTE | 2023-03-17 08:40 | P.PN_ITS ---
Subjective *Date: 03/17/23 *Time: 08:40 Exam Data for Last 24 hours Vital signs and Labs for Last 24 Hours: Temp Pulse Resp BP Pulse Ox O2 Del Method O2 Flow Rate 98.4 F 88 21 154/76 H 95 Room Air 2 03/17/23 07:48 03/17/23 07:48 03/17/23 07:48 03/17/23 07:48 03/17/23 07:48 03/17/23 07:48 03/13/23 21:50 Laboratory Results - last 24 hr 03/16/23 11:09: POC Glucose 141 H 03/16/23 16:41: POC Glucose 236 H 03/16/23 20:12: POC Glucose 164 H 03/17/23 05:37: POC Glucose 130 H 03/17/23 06:22: WBC 10.4, RBC 3.85 L, Hgb 11.6 L, Hct 35.5 L, MCV 92.4, MCH 30.1, MCHC 32.6, RDW 13.3, Plt Count 360, MPV 8.2, Neut % (Auto) 69.2, Lymph % (Auto) 20.1, [place] % (Auto) 6.7, Eos % (Auto) 3.4, Baso % (Auto) 0.5, Neut # (A uto) 7.2, Lymph # (Auto) 2.1, [place] # (Auto) 0.7, Eos # (Auto) 0.4, Baso # (Auto) 0.1, Sodium 138, Potassium 3.5, Chloride 101, Carbon Dioxide 29, Anion Gap 11.5, BUN 14 D, Creatinine 0.80, Estimated Creat Clear 68, Estimated GFR 70, Est GFR ( Amer) 84 D, Glucose 127 H, Calcium 9.0 I & O for Last 24 hours: Intake & Output 03/14/23 03/15/23 03/16/23 03/17/23 23:59 23:59 23:59 23:59 Intake Total 1355 / 1355 1024 / 1264 1551 / 1551 240 / 240 Output Total 950 / 950 0 / 0 500 / 500 300 / 300 Balance 405 / 405 1024 / 1264 1051 / 1051 -60 / -60 Weight 87 kg 88.587 kg 90.628 kg 90.9 kg
--- NOTE | 2023-03-17 08:40 | XR_ITS ---
PROCEDURE INFORMATION: Exam: XR Left Knee Exam date and time: 03/17/2023 8:47 AM Age: 77 years old Clinical indication: Pain; Knee; Left; Additional info: Left knee pain TECHNIQUE: Imaging protocol: Radiologic exam of the left knee. Views: 3 views. COMPARISON: None FINDINGS: Bones/joints: Severe degenerative change, disproportionately involving the lateral tibiofemoral joint. Chondrocalcinosis and joint effusion. 1.5 cm subchondral cyst in the proximal tibia. Soft tissues: Soft tissue prominence. IMPRESSION: Severe degenerative change, disproportionately involving the lateral tibiofemoral joint.
--- NOTE | 2023-03-17 08:42 | XR_ITS ---
PROCEDURE INFORMATION: Exam: XR Left Shoulder Exam date and time: 03/17/2023 8:47 AM Age: 77 years old Clinical indication: Pain; Shoulder; Left; Additional info: Left shoulder pain TECHNIQUE: Imaging protocol: Radiologic exam of the left shoulder. Views: 2 or more views. COMPARISON: None FINDINGS: Bones/joints: Degenerative change. Anatomic alignment. Lungs: Interstitial prominence in the visualized left lung. Soft tissues: Unremarkable soft tissues. IMPRESSION: Degenerative change.
--- NOTE | 2023-03-17 09:55 | EXP.DC.SUM ---
General Admission date:: 03/13/23 Discharge date: 03/17/23 HPI HPI HPI: Forwarded from Admission H&P: This is a 77-year-old female with PMHx multiples falls, GERD, CKD, DM type 2, bilateral arthopathy of the knees, who has been progressively declining over the last year according to her daughter presented today for evaluation after a fall. She stated she has been generally weak which has been worsening over that time. Nothing acutely changed today. She fell earlier this morning. She does believe that she hit her lower back on a toilet she was already having some back pain preceding this but had worsening lower back pain since that time. She complained of some lower extremity paresthesias. Her daughter who is with her stated that she tried to get her up to walk her multiple times today and she was unable to walk even with the assistance of a walker. EMS was called since they are very concerned that she is got to the point from a progressive decline standpoint that she can no longer care for herself. admitted for further management. Hospital Course Hospital Course Hospital Course: The patient complained of worsening pain in her L knee and L shoulder pain. CT lumpar spine, cxr, pelvis xr, left shoulder and left knee xrays did not reveal any acute abnormality. The patient's kidney function improved with IV fluids. PT recommended SNF placement. She will be discharging to [facility] for PT/OT/nursing. Exam Data for Last 24 hours Vital signs and Labs for Last 24 Hours: Temp Pulse Resp BP Pulse Ox O2 Del Method O2 Flow Rate 98.4 F 88 21 154/76 H 95 Room Air 2 03/17/23 07:48 03/17/23 07:48 03/17/23 07:48 03/17/23 07:48 03/17/23 07:48 03/17/23 07:48 03/13/23 21:50 Laboratory Results - last 24 hr 03/16/23 11:09: POC Glucose 141 H 03/16/23 16:41: POC Glucose 236 H 03/16/23 20:12: POC Glucose 164 H 03/17/23 05:37: POC Glucose 130 H 03/17/23 06:22: WBC 10.4, RBC 3.85 L, Hgb 11.6 L, Hct 35.5 L, MCV 92.4, MCH 30.1, MCHC 32.6, RDW 13.3, Plt Count 360, MPV 8.2, Neut % (Auto) 69.2, Lymph % (Auto) 20.1, [place] % (Auto) 6.7, Eos % (Auto) 3.4, Baso % (Auto) 0.5, Neut # (Auto) 7.2, Lymph # (Auto) 2.1, [place] # (Auto) 0.7, Eos # (Auto) 0.4, Baso # (Auto) 0.1, Sodium 138, Potassium 3.5, Chloride 101, Carbon Dioxide 29, Anion Gap 11.5, BUN 14 D, Creatinine 0.80, Estimated Creat Clear 68, Estimated GFR 70, Est GFR ( Amer) 84 D, Glucose 127 H, Calcium 9.0 I & O for Last 24 hours: Intake & Output 03/14/23 03/15/23 03/16/23 03/17/23 23:59 23:59 23:59 23:59 Intake Total 1355 / 1355 1024 / 1264 1551 / 1551 240 / 240 Output Total 950 / 950 0 / 0 500 / 500 300 / 300 Balance 405 / 405 1024 / 1264 1051 / 1051 -60 / -60 Weight 87 kg 88.587 kg 90.628 kg 90.9 kg Constitutional Constitutional: no acute distress *Routine HEENT Exam Head: Present normocephalic Eye: Present EOMI and PERRL ENT: Present mucous membranes moist *Routine Neck Exam Neck: Present supple; Absent lymphadenopathy *Routine Respiratory Exam Respiratory: Present CTA bilaterally *Routine Cardiovascular Exam Cardiovascular: Present RRR *Routine Abdominal Exam Abdominal: Present soft and normoactive bowel sounds; Absent tenderness *Routine Extremities Exam Extremities: Absent cyanosis, clubbing or edema *Routine Skin Exam Skin: Present warm; Absent rash *Routine Neurological Exam Neurological: Present alert and oriented X3 Results Data Completed and Pending Labs on day of discharge: Labs from last 24 hours 03/17/23 03/17/23 03/16/23 06:22 05:37 20:12 WBC 10.4 RBC 3.85 L Hgb 11.6 L Hct 35.5 L MCV 92.4 MCH 30.1 MCHC 32.6 RDW 13.3 Plt Count 360 MPV 8.2 Neut % (Auto) 69.2 Lymph % (Auto) 20.1 [place] % (Auto) 6.7 Eos % (Auto) 3.4 Baso % (Auto) 0.5 Neut # (Auto) 7.2 Lymph # (Auto) 2.1 [place] # (Auto) 0.7 Eos # (Auto) 0.4 Baso # (Auto) 0.1 Sodium 138 Potassium 3.5 Chloride 10
== END 2023-03-17 11:39 ==
LOC: ER 19:49 → 2ND 21:35
PROVIDERS: Nurse Practitioner Family; Admitting Provider Internal Medicine; Emergency Provider Student in an Organized Health Care Education/Training Program; PCP Family Medicine; Visit Provider Internal Medicine
DX: R62.7 Adult failure to thrive (principal); R53.1 Weakness; W19.XXXA Unspecified fall, initial encounter; R29.6 Repeated falls; D72.829 Elevated white blood cell count, unspecified; N18.32 Chronic kidney disease, stage 3b; M17.12 Unilateral primary osteoarthritis, left knee; E78.5 Hyperlipidemia, unspecified; E11.22 Type 2 diabetes mellitus with diabetic chronic kidney disease; K21.9 Gastro-esophageal reflux disease without esophagitis; E66.9 Obesity, unspecified; Z79.899 Other long term (current) drug therapy; I12.9 Hypertensive chronic kidney disease with stage 1 through stage 4 chronic kidney disease, or unspecified chronic kidney disease
CPT/HCPCS: 36415; 71045; 72131; 72170; 73030; 73562; 80048; 80053; 82962; 85025; 87086; 97162; 97167; 97530; 99285; G0378

== ENCOUNTER 2023-06-04 17:39 | Emergency (ER) | payer MEDICARE, MEDICAID, SELFPAY ==
[2023-06-04 17:32] VITALS: BP 133/73; PULSE 88; RESP 18; O2SAT 92
[2023-06-04 17:39] VITALS: BP 133/73; PULSE 88; RESP 20; TEMP 37.2; O2SAT 92; BMI 34.2
--- NOTE | 2023-06-04 17:39 | CT_ITS ---
PROCEDURE INFORMATION: Exam: CTA Chest With Contrast Exam date and time: 06/04/2023 6:56 PM Age: 78 years old Clinical indication: Dyspnea; Additional info: Outpt dvt dx today, here with dyspnea TECHNIQUE: Imaging protocol: Computed tomographic angiography of the chest with contrast. Exam focused on the arteries. 3D rendering (Not supervised by radiologist): MIP and/or 3D reconstructed images were created by the technologist. Radiation optimization: All CT scans at this facility use at least one of these dose optimization techniques: automated exposure control; mA and/or kV adjustment per patient size (includes targeted exams where dose is matched to clinical indication); or iterative reconstruction. Contrast material: ISOVUE 370; Contrast volume: 75 ml; Contrast route: INTRAVENOUS (IV); REPORTING DATA: Count of CT and Cardiac NM exams in prior 12 months: This patient has received [address] and 0 known cardiac nuclear medicine studies in the 12 months prior to the current study. COMPARISON: CR XR CHEST PORTABLE 03/13/2023 6:53 PM FINDINGS: Pulmonary arteries: Nonocclusive pulmonary embolism within the distal right main pulmonary artery extending into the proximal interlobar artery. Note that the bilateral lower lobe subsegmental pulmonary arteries are not well-visualized due to motion artifact. Aorta: Unremarkable. Diffuse thoracic aortic ectasia. No aortic dissection. Lungs: Diffuse interlobular septal thickening and ground-glass opacification. Few small calcified granulomas. Pleural spaces: Unremarkable. No pneumothorax. No pleural effusion. Heart: Unremarkable. No cardiomegaly. No pericardial effusion. Heart RV/LV ratio: 0.94. Coronary arteries: Moderate coronary artery calcifications. Lymph nodes: Small calcified right hilar and subcarinal lymph nodes. No enlarged lymph nodes. Spleen: Splenic calcifications. Bones/joints: Degenerative changes. No acute fracture. Soft tissues: Unremarkable. IMPRESSION: 1. Nonocclusive pulmonary embolism within the distal right main pulmonary artery extending into the proximal interlobar artery. No evidence of right heart strain. 2. Diffuse interlobular septal thickening and ground-glass opacification suggestive of pulmonary edema.
--- NOTE | 2023-06-04 17:41 | HMH.EDGENADL ---
Discharge Plan Disposition Patient Disposition: Home, Self-Care Prescriptions Prescriptions: New Eliquis 5 mg tablet 5 mg PO BID 90 Days Qty: 190 0RF Rx Instructions: please take 10 mg BID for 7 days followed by 5 mg BID for a total of 3 months No Action Centrum Silver 400-250 mcg tablet,chewable 1 tab PO DAILY aspirin [Aspir-81] 81 mg tablet,delayed release (DR/EC) 81 mg PO DAILY gabapentin 300 mg capsule 300 mg PO HS Qty: 30 5RF diphenoxylate-atropine 2.5-0.025 mg tablet 1 tab PO QID PRN (Reason: diarrhea) Qty: 90 0RF furosemide [Lasix] 40 mg Tablet 40 mg PO DAILY triamterene-hydrochlorothiazid 37.5-25 mg Tablet 1 tab PO DAILY losartan 50 mg tablet 50 mg PO DAILY pravastatin 10 mg tablet 10 mg PO HS Rx Instructions: TAKE 1 TABLET BY MOUTH DAILY omeprazole 40 mg capsule,delayed release(DR/EC) 40 mg PO DAILY Referrals Follow up/Referrals: Florentino Mccormick MD [Primary Care Provider] - See instructions Activity Restrictions/Add. Instructions Additional Instructions/Restrictions: Continue your exercises as discussed. Return with any bleeding concerns or falls. Please be very careful with ambulation as discussed as you are very high risk for significant bleeding being on the Eliquis. Return with any significant shortness of breath or chest pain. Clinical Impressions Clinical Impression: Acute deep vein thrombosis (DVT) of right lower extremity Discharge ED Provider: Wilfrido Coello General Adult HPI General Chief complaint: Extremity Problem,Nontraumatic Stated complaint: DVT to RLE Time Seen by Provider: 06/04/23 17:51 History of Present Illness HPI narrative: Patient is a 78-year-old female brought in by EMS from [facility] for an acute DVT and dyspnea. She states that she has had right lower extremity swelling over the last several days had a DVT ultrasound was performed by [facility] today and the read is with her showing acute thrombus involving the common femoral vein and superficial femoral vein of the right lower extremity. She also states she had some dyspnea over the same time. Which is presumptively why she was sent to the emergency department today. She has not been started on any anticoagulation that we are aware of. Related Data Home Medications Medication Instructions Recorded Confirmed aspirin 81 mg tablet,delayed 81 mg PO DAILY Heart Disease 08/13/19 03/13/23 release (Aspir-) multivit with min-folic 1 tab PO DAILY Supplement 08/13/19 03/13/23 acid-lutein 400 mcg-250 mcg chewable tablet (Centrum Silver) losartan 50 mg tablet 50 mg PO DAILY High Blood Pressure 03/13/23 03/13/23 omeprazole 40 mg capsule,delayed 40 mg PO DAILY Acid Reflux 03/13/23 03/13/23 release pravastatin 10 mg tablet 10 mg PO HS High Cholesterol 03/13/23 03/13/23 furosemide 40 mg tablet (Lasix) 40 mg PO DAILY 06/04/23 06/04/23 triamterene 37.5 1 tab PO DAILY 06/04/23 06/04/23 mg-hydrochlorothiazide 25 mg tablet Previous Rx's Medication Instructions Recorded gabapentin 300 mg capsule 300 mg PO HS nerve pain #30 caps 01/17/23 diphenoxylate-atropine 2.5 1 tab PO QID PRN diarrhea #90 tabs 02/19/23 mg-0.025 mg tablet apixaban 5 mg tablet (Eliquis) 5 mg PO BID 90 days #190 tabs 06/04/23 Allergies Allergy/AdvReac Type Severity Reaction Status Date / Time Penicillins Allergy Verified 01/17/23 09:50 [facility] Disclaimer: The information contained in this section may have been updated after the patient was seen, as this information can be updated by other users. Medical History (Updated 06/04/23 @ 17:44 by Wilfrido Coello MD) Arthropathy of left knee Chronic GERD Diarrhea Dizziness Dyslipidemia Insomnia Onychogryposis of toenail Type 2 diabetes mellitus Social History (Updated 03/13/23 @ 22:47 by Sabrina Reina RN) Smoking Status: Never smoker alcohol intake: never
--- NOTE | 2023-06-04 17:51 | ECG_ITS ---
APPROVED REPORT Exam: Resting ECG HR:78 bpm ECG Measurements Heart Rate 78 AXES NV 121 P 19 QRSd 97 QRS -22 QT 372 T 42 QTc 406 Conclusion SINUS RHYTHM BORDERLINE LEFT AXIS DEVIATION [QRS AXIS < -20] BORDERLINE ECG UNCONFIRMED REPORT Electronically signed by : Sina Casas MD 06/06/2023 08:54:55
[2023-06-04 18:06] VITALS: BP 132/52; PULSE 78; RESP 18; O2SAT 92
[2023-06-04 18:18] LABS: Basophils # 0.1 K/mm3 (0-0.2); Basophils % 0.6 % (0.1-2.0); Eosinophils # 0.5 K/mm3 (0.0-0.4); Eosinophils % 5.7 % (0.1-12.0); Hematocrit 32.5 % (37.0-47.0); Hemoglobin 11.5 g/dL (12.2-16.2); Lymphocytes # 2.3 K/mm3 (0.7-4.5); Lymphocytes % 24.5 % (10-50); Mean Corpuscular HGB Conc 35.5 g/dL (31.8-35.4); Mean Corpuscular Hemoglobin 32.9 pg (27.0-31.2); Mean Corpuscular Volume 92.8 fl (81-99); Mean Platelet Volume 7.5 fl (7.4-10.4); Monocytes # 0.5 K/mm3 (0.1-1.0); Monocytes % 4.9 % (1.7-9.3); Neutrophils # 6.1 K/mm3 (1.8-7.8); Neutrophils % 64.2 % (37.0-80.0); Platelet Count 514 K/mm3 (142-424); Red Cell Distribution Width 13.1 % (11.5-17.5); White Blood Count 9.5 K/mm3 (4.8-10.8)
[2023-06-04 18:21] LABS: Alanine Aminotransferase 32 U/L (12-78); Alkaline Phosphatase 60 U/L (38-126); Aspartate Amino Transferase 46 U/L (14-36); Bilirubin,Total 0.4 mg/dl (0.2-1.3); Blood Urea Nitrogen 27 mg/dl (7-17); Carbon Dioxide 31 mmol/L (22.0-30.0); Chloride 93 mmol/L (98-107); Creatinine Clearance Estimated 43 mL/min (50-200); Estimated Glomerular Filt Rate 34 ml/min (>60); GFR (African American) 41 ML/MIN (>60)
[2023-06-04 18:23] LABS: Albumin Level 4.2 g/dl (3.5-5.0); Albumin/Globulin Ratio 1.1 (1.1-1.8); Anion Gap 13.4 mEq/L (5-15); Calcium 9.3 mg/dl (8.4-10.2); Globulin 3.7 g/dL (1.3-3.2); Glucose 144 mg/dl (74-100); Potassium 4.4 mmoL/L (3.5-5.1); Sodium 133 mmol/L (136-145); Total Protein,Serum 7.9 g/dl (6.3-8.2)
[2023-06-04 18:26] LABS: Activated Partial Thrombo Time 25.2 seconds (22.8-30.6); INR 0.98 (0.9-1.1); Prothrombin Time 10.6 seconds (10.1-12.5)
[2023-06-04 18:31] VITALS: BP 118/63; PULSE 81; RESP 20; O2SAT 94
[2023-06-04 18:32] LABS: NT Pro Brain Natriuretic Pep. 83.4 pg/mL (0-450)
[2023-06-04 18:36] LABS: Troponin I < 0.01 ng/ml (0.00-0.034)
--- NOTE | 2023-06-04 18:37 | PC.NURSE ---
staff at bedside with u/s to attempt an PIV in AC.
--- NOTE | 2023-06-04 19:55 | PC.NURSE ---
notified [facility] that pt is ready for transfer back to [facility].
--- NOTE | 2023-06-04 19:56 | PC.NURSE ---
gave report to Lindsey pappas at [facility]
[2023-06-04 20:01] VITALS: BP 122/78; PULSE 84; RESP 20; TEMP 36.7; O2SAT 94
== END 2023-06-04 20:47 | disposition home or self-care (01) ==
PROVIDERS: Emergency Provider Student in an Organized Health Care Education/Training Program; PCP Family Medicine
DX: I82.4Z1 Acute embolism and thrombosis of unspecified deep veins of right distal lower extremity (principal); R06.00 Dyspnea, unspecified; E11.9 Type 2 diabetes mellitus without complications
CPT/HCPCS: 71275; 80053; 83880; 84484; 85025; 85610; 85730; 93005; 99285; Q9967